=== PATIENT | female | born 1990 | race Caucasian/White ===

== ENCOUNTER 2020-08-11 14:22 | Outpatient (CLI) | payer BC, SELFPAY | END 2020-08-11 14:23 | disposition home or self-care (01) | PROVIDERS: PCP Physician Assistant; Visit Provider Obstetrics & Gynecology | DX: N92.6 Irregular menstruation, unspecified (principal) | CPT/HCPCS: 36415; 84702 ==

== ENCOUNTER 2020-09-12 08:04 | Observation (INO) | payer BC, SELFPAY ==
[2020-09-12] MEDS: ONDANSETRON INJ 4 MG/2 ML VIAL IV PUSH (08:33)
[2020-09-12] MEDS: DEXTROSE 5%/LACTATED RINGERS 1,000 ML 999 ML IV CONT (08:33)
[2020-09-12] MEDS: FAMOTIDINE 20 MG/2 ML VIAL IV PUSH (08:33)
[2020-09-12] MEDS: DEXTROSE 5%/LACTATED RINGERS 1,000 ML 200 ML IV CONT (09:29)
[2020-09-12] MEDS: METOCLOPRAMIDE HCL INJ 10 MG/2 ML VIAL IV PUSH (11:32)
[2020-09-12 11:36] VITALS: BMI 33.3
--- NOTE | 2020-09-12 11:45 | OBADM ---
This patient, Lexie Krueger, admitted to the OB room 117 for observation for hyperemesis. Patient/family oriented to hospital policies and general routines including ID bracelet, bed and alarms, visiting hours, pain management, procedures, bathroom and other care routines, personal items, smoking policy, room service/diet, and visiting hours. Patient/Family are encouraged to report perceived risks to care and to ask questions if they do not understand what they are told or what they should do.
--- NOTE | 2020-09-12 12:00 | PM.OBTRLD ---
OB - Triage/Final Diagnosis Visit Information Reason for evaluation: other (hyperemesis) Comments/Additional reasons for admission: I have assessed the risk for this patient, Lexie Alda Krueger, and determined that she would benefit from observation care.
--- NOTE | 2020-09-12 15:30 | PC.NURSE ---
Pt now awake from taking a nap. States headache is almost gone and she no longer needs the Tylenol. Pt has kept down her saltines and white soda. Nausea has decreased and is only intermittent at present. Pt requests to go home.
== END 2020-09-12 15:47 ==
LOC: ANHOBPP 15:23 → ANHOBOP 09-16 10:41 → ANHLDR 09-16 12:32 → ANHOBOP 09-17 06:12 → ANHLDR 09-17 06:12
PROVIDERS: Admitting Provider Obstetrics & Gynecology; PCP Physician Assistant; Visit Provider Obstetrics & Gynecology
DX: O21.0 Mild hyperemesis gravidarum (principal); Z3A.09 9 weeks gestation of pregnancy
CPT/HCPCS: 96361; 96374; 96375; 99199; G0378; G0379; J2405; J2765; J7121

== ENCOUNTER 2020-09-22 07:36 | Observation (INO) | payer BC, SELFPAY ==
--- NOTE | ~2020-09-22 | US_ITS ---
EXAMINATION: US abdomen limited EXAM DATE: 09/22/2020 13:01 INDICATION: nausea and vomiting - check gallbladder. . TECHNIQUE: Multiple grayscale and Doppler images of the abdomen right upper quadrant were obtained (b y a technologist who performed the scan) and subsequently reviewed. There is no prior study for mariza fitch. FINDINGS: The pancreatic head and body are normal in appearance. The pancreatic tail is not visualized. The l iver has normal echogenicity and contour. There are no focal liver lesions identified. There is no evidence of intrahepatic biliary duct dilation. Portal venous flow was seen in the hepatopedal, nor mal direction and has normal Doppler waveform. No right-sided hydronephrosis. Common bile duct measures 4 mm, which is normal. The gallbladder wall is normal in thickness, with ex pected amount of distention. No sonographic evidence of pericholecystic fluid. There is no cholelit hiases. Technologist performing exam reports patient did not demonstrate sonographic Khan's sign. Please note that this sign is less reliable in patients who have received pain medication. IMPRESSION: 1. Unremarkable abdominal ultrasound exam. Reviewed, dictated and finalized at location A.
--- NOTE | 2020-09-22 07:44 | PM.OBTRLD ---
OB - Triage/Final Diagnosis Visit Information Comments/Additional reasons for admission: I have assessed the risk for this patient, Lexie Krueger, and determined that she would benefit from observation care. Final Diagnosis (1) Hyperemesis affecting , antepartum: Code(s): O21.0 - Mild hyperemesis gravidarum Status: Acute
[2020-09-22 07:46] VITALS: BP 126/74; PULSE 76
[2020-09-22] MEDS: DEXTROSE 5%/LACTATED RINGERS 1,000 ML 999 ML IV CONT (08:12)
[2020-09-22] MEDS: ONDANSETRON INJ 4 MG/2 ML VIAL IV PUSH (08:12)
[2020-09-22] MEDS: FAMOTIDINE 20 MG/2 ML VIAL IV PUSH (08:13)
[2020-09-22 08:23] LABS: Hematocrit 39.7 % (37.0-47.0); Hemoglobin 13.8 g/dL (12.0-15.0); Mean Corpuscular HGB Conc 34.8 g/dl (32-36); Mean Corpuscular Hemoglobin 29.1 pg (26-34); Mean Corpuscular Volume 83.8 fl (80-100); Mean Platelet Volume 10.7 fl (7.4-10.4); Platelet Count Result 284 k/mm3 (150-375); Red Blood Count 4.74 M/mm3 (4.2-5.4); Red Cell Distribution Width 12.7 % (11.5-14.5); White Blood Count 11.4 K/mm3 (4.5-10.0)
[2020-09-22 08:36] LABS: Alanine Aminotransferase 28 U/L (4-35); Albumin Level 3.9 g/dL (3.5-5.1); Alkaline Phosphatase 62 U/L (38-126); Anion Gap 7 mmol/L (8-16); Aspartate Amino Transferase 29 U/L (14-36); Bilirubin,Total 0.4 mg/dL (0.2-1.3); Blood Urea Nitrogen 7 mg/dL (7-17); Calcium 9.2 mg/dL (8.4-10.2); Carbon Dioxide 25 mmol/L (22-30); Chloride 105 mmol/L (98-107); Estimated Glomerular Filt Rate > 60; Glucose 102 mg/dL (65-105); Potassium 3.7 mmol/L (3.4-5.0); Sodium 137 mmol/L (137-145)
[2020-09-22] MEDS: DEXTROSE 5%/LACTATED RINGERS 1,000 ML 200 ML IV CONT (09:00)
[2020-09-22] MEDS: ACETAMINOPHEN 500 MG TABLET 1000 MG PO (11:00)
[2020-09-22] MEDS: METOCLOPRAMIDE HCL INJ 10 MG/2 ML VIAL IV PUSH (11:51)
[2020-09-22 12:27] VITALS: BMI 35.0
--- NOTE | 2020-09-22 15:00 | PC.NURSE ---
patient states that she is feeling much better and ok with discharge.
== END 2020-09-22 15:14 | disposition home or self-care (01) ==
PROVIDERS: Admitting Provider Obstetrics & Gynecology; PCP Physician Assistant; Visit Provider Obstetrics & Gynecology
DX: O21.0 Mild hyperemesis gravidarum (principal); Z3A.00 Weeks of gestation of pregnancy not specified
CPT/HCPCS: 36415; 76705; 80053; 85027; 96361; 96374; 96375; A9270; G0378; G0379; J2405; J2765; J7121

== ENCOUNTER 2021-04-04 09:47 | Outpatient (CLI) | payer BC, SELFPAY ==
[2021-04-04 10:14] LABS: Hematocrit 35.9 % (37.0-47.0); Hemoglobin 11.7 g/dL (12.0-15.0); Mean Corpuscular HGB Conc 32.6 g/dl (32-36); Mean Corpuscular Hemoglobin 27.1 pg (26-34); Mean Corpuscular Volume 83.3 fl (80-100); Mean Platelet Volume 10.4 fl (7.4-10.4); Platelet Count Result 274 k/mm3 (150-375); Red Blood Count 4.31 M/mm3 (4.2-5.4); Red Cell Distribution Width 13.3 % (11.5-14.5); White Blood Count 10.2 K/mm3 (4.5-10.0)
[2021-04-06 06:59] LABS: Rapid Plasma Reagin Non-Reactive (NonReactive)
== END 2021-04-04 09:48 | disposition home or self-care (01) ==
PROVIDERS: PCP Physician Assistant; Visit Provider Obstetrics & Gynecology
DX: Z34.93 Encounter for supervision of normal pregnancy, unspecified, third trimester (principal); Z3A.00 Weeks of gestation of pregnancy not specified
CPT/HCPCS: 36415; 85027; 86592; 86850; 86900; 86901

== ENCOUNTER 2021-04-06 05:27 | Inpatient (IN) | payer BC, SELFPAY ==
[2021-04-06] VITALS (49 sets, daily range): BP systolic 106–138; BP diastolic 56–98; PULSE 51–117; RESP 16–18; TEMP 36–36.9; O2SAT 97–100; BMI 38.0
[2021-04-06] MEDS: LACTATED RINGERS 1,000 ML 999 ML IV CONT (06:35)
--- NOTE | 2021-04-06 06:36 | LDADM ---
This patient, Lexie Krueger, was admitted to Labor/Delivery/Recovery 120 on 04/06/21 at 05:27. Plans for labor, pain management and were discussed with patient. Patient/family oriented to hospital policies and general routines including ID bracelet, bed and alarms, visiting hours, pain management, procedures, bathroom and other care routines, personal items, smoking policy, room service/diet and guest tray routines, infant security routines, call light and visiting hours. Patient/Family are encouraged to report perceived risks to care and to ask questions if they do not understand what they are told or what they should do. See OBIX for further documentation.
--- NOTE | 2021-04-06 06:56 | P.PNAN_ITS ---
Anes - Initial Pre Proc Eval Procedure: Operation Date: 04/06/21 07:30 Proposed Procedures p Repeat Section With Bilateral Tubal Sterilization With Cautery - El Burkett MD Date/Time: 04/06/21 06:56 Surgeon: El Burkett MD Pre Op Diagnosis: Patient Data Age: 31 Gender: F Height: 1.65 m Weight: 103.5 kg Allergies Allergy/AdvReac Type Severity Reaction Status Date / Time Penicillins Allergy Unknown Rash Verified 04/06/21 06:33 Home Medications Medication Instructions Recorded Confirmed Type Gummies 2 tablet PO DAILY 09/12/20 04/06/21 History metoclopramide HCl 10 mg PO Q6H PRN 09/12/20 04/06/21 History cetirizine [Zyrtec] 10 mg PO DAILY 03/13/21 04/06/21 History levothyroxine 75 mcg PO DAILY 03/13/21 04/06/21 History Patient hx anesthesia problems: none Family hx anesthesia problems: none Results Review: All pre-operative results and documents have been reviewed as part of the pre-operative evaluation. [facility] Past Medical History Medical History (Updated 04/06/21 @ 06:56 by Nehemias Lopez MD) Hypothyroidism Surgical History Surgical History (Updated 04/06/21 @ 06:56 by Nehemias Lopez MD) History of section Family History Family History (Updated 03/13/21 @ 12:26 by Omar Gunderson RN) Other No pertinent family history Social History Social History Smoking status: Never smoker Substance use: never Spiritual care concerns: No Anes - Eval Final PreProcedure Day of Procedure 04/06/21 06:56 Patient weight: obese Heart: regular rate and rhythm Lungs: clear to auscultation Airway: Mallampati scale class II Neurological: alert and oriented Last oral intake: >/= 8 hours ASA classification: II Emergent: no Anesthesia type and monitoring: regional spinal and standard monitoring Results Review: All pre-operative results and documents have been reviewed as part of the pre-operative evaluation. Informed Consent: The patient's anesthetic plan and its attendant risks and benefits were discussed with the patient/family/POA. Questions were solicited and answers provided to the satisfaction of the patient/family/POA.
--- NOTE | 2021-04-06 07:17 | WPDOBADMIT ---
Obstetrics - Admit Note Admission Note: record reviewed. No pertinent additions to the history and/or any subsequent changes in the physical findings that are not consistent with the expected course of the were found. Additions to the history and/or subsequent changes in the physical findings follow. None.
--- NOTE | 2021-04-06 07:17 | PM.IMHP ---
H&P: HPI History of Present Illness Date/Time: 04/06/21 07:17 31-year-old 2 para 1001 female at 39 weeks presents for repeat delivery. records are on the chart and without significant abnormality. Also desires permanent sterilization so we will be proceeding with bilateral salpingectomy as well. We have discussed the permanence failure rate increased risk of ectopic and regret she states good understanding and desires to proceed. Chief Complaint: Review of Systems Review of Systems: All systems reviewed & are unremarkable except as noted in HPI and below PMFSH Past Medical History Medical History Hypothyroidism Surgical History Surgical History History of section Family History Family History Other No pertinent family history Social History Social History Smoking status: Never smoker Substance use: never Spiritual care concerns: No Meds Home Medications and Allergies Home Medications Medication Instructions Recorded Confirmed Type Gummies 2 tablet PO DAILY 09/12/20 04/06/21 History metoclopramide HCl 10 mg PO Q6H PRN 09/12/20 04/06/21 History cetirizine [Zyrtec] 10 mg PO DAILY 03/13/21 04/06/21 History levothyroxine 75 mcg PO DAILY 03/13/21 04/06/21 History Allergies Allergy/AdvReac Type Severity Reaction Status Date / Time Penicillins Allergy Unknown Rash Verified 04/06/21 06:33 Exam Const: General: cooperative and healthy appearing Resp: Effort & Inspection: normal respiratory effort Auscultation: clear to auscultation bilaterally Cardio: Rate: regular rate Rhythm: regular rhythm GI: Auscultation: normal bowel sounds : Bimanual exam- vagina & uterus: other ( Uterus 40cm with heart tones 140) Assessment and Plan Assessment and plan (1) 39 weeks gestation of : Code(s): Z3A.39 - 39 weeks gestation of Status: Acute (2) Encounter for female sterilization procedure: Code(s): Z30.2 - Encounter for sterilization Status: Acute Additional Plan 1. Proceed with low transverse section with bilateral tubal salpingectomy.
--- NOTE | 2021-04-06 07:20 | WPDHPUPDATE1 ---
History and Physical Update Update Date/Time: 04/06/21 07:20 History and Physical has been reviewed, including an updated exam of the patient. There are NO changes in the patient's condition. Risks, benefits, and alternatives have been discussed and questions answered. Patient agrees to proceed with procedure.
[2021-04-06] MEDS: ceFAZolin 2 GM/D5W 50 ML 2 GM/50 ML BAG IVPB (07:24)
--- NOTE | 2021-04-06 08:14 | P.PCNOB_ITS ---
OB - Delivery Note Procedure Procedure: Procedures Operation Date: 04/06/21 07:30 <No data on this case meets the specified criteria> events: Previous Route of delivery: (With bilateral salpingectomy/tubal ligation) Specimen: Yes Quantitative Blood Loss (ml): 175 Anesthesia type: Epidural Disposition: floor Complications: None Narrative: Patient was prepped in usual manner this procedure. Pfannenstiel incision was made and carried down to the fascia which was then extended bilaterally the length of the skin incision. Superiorly and inferiorly dissected away from the rectus muscles which were then bluntly dissected the peritoneum was readily entered. Bladder flap was developed uterus scored and low transverse incision was made with clear fluid noted. Vertex was delivered with the rest of baby following cord being clamped and cut and the placenta manually removed. Uterus was exteriorized cleared of membranes and clots and closed using 0 Monocryl running interlocking manner. Bilaterally the tubes were then grasped and mesial salpinx was cauterized and cut and the tubes removed without difficulty. Uterine incision was again inspected noted hemostatic uterus was turned to the abdomen and both tubal stumps were also hemostatic and intact. Fascia was approximated using 0 Vicryl from left angle midline right angle to the midline and subcutaneous tissue was approximated 0 plain suture and skin john to approximate the skin edges. This point the procedure was considered terminated with immediate postoperative condition of mother and baby both excellent. [place] Baby Weeks of gestation at delivery: 39 Infant gender: Female Weight (pounds): 8 Weight (ounces): 1 score one minute: 8 score five minutes: 9
[2021-04-06] MEDS: OXYTOCIN 30 UNITS/NS 500 ML 30 UNITS/500 ML BAG 125 UNITS IV CONT (08:40)
--- NOTE | 2021-04-06 10:16 | PC.NURSE ---
Report given to Savanna Barger RN
--- NOTE | 2021-04-06 10:35 | PC.NURSE ---
Patient transferred to post room #292 per stretcher from labor and delivery. Support person present. Oriented to unit, room, information board, rooming in, admission packet and security measures. Patient verbalizes understanding.
[2021-04-06] MEDS: KETOROLAC 30 MG/ML VIAL (*BKC) IV PUSH (10:58)
[2021-04-06] MEDS: DEXTROSE 5%/0.45% SOD CHL 1,000 ML 125 ML IV CONT (12:18)
--- NOTE | 2021-04-06 14:00 | PC.NURSE ---
Consult with pt., mother wishes to pump and bottle feed. Breast pump provided due to mother's wishes. Instructions given on breast pump care and usage, pumping schedule, nipple care, and collection and storage of breast milk. Encouraged [id number], breast massage and manual expression to stimulate supply. Assessed patient for correct flange size, placement and draw. Patient verbalizes and demonstrates understanding of instructions. Discussed colostrum vs milk supply and mother may not see more than a few drops the first few days, milk should transition in by day 3 and she may see more volume pumped per session.
[2021-04-06] MEDS: ONDANSETRON INJ 4 MG/2 ML VIAL IV PUSH (14:33)
[2021-04-06] MEDS: HYDROcodone/acetaminophen (*CRX) 10-325 MG TABLET 1 TAB PO ×2 (16:15→20:19)
[2021-04-06] MEDS: SIMETHICONE 80 MG TAB.CHEW PO (16:16)
[2021-04-06] MEDS: DOCUSATE SODIUM 100 MG CAPSULE PO (20:19)
[2021-04-06] MEDS: IBUPROFEN 600 MG TABLET PO (20:20)
[2021-04-06] MEDS: LORATADINE 10 MG TABLET PO (20:24)
[2021-04-07 04:00] VITALS: BP 129/78; PULSE 72; RESP 18; TEMP 36.8
[2021-04-07] MEDS: HYDROcodone/acetaminophen (*CRX) 10-325 MG TABLET 1 TAB PO ×5 (04:42→20:33)
[2021-04-07] MEDS: LEVOTHYROXINE SODIUM 75 MCG TABLET PO (04:42)
[2021-04-07] MEDS: IBUPROFEN 600 MG TABLET PO ×3 (04:43→17:19)
[2021-04-07] MEDS: SIMETHICONE 80 MG TAB.CHEW PO ×4 (05:07→20:48)
[2021-04-07 05:58] LABS: Basophils Absolute Auto 0.1 K/mm3 (0.0-0.1); Basophils Percent Auto 0.4 % (0.2-1.2); Hematocrit 31.2 % (37.0-47.0); Hemoglobin 9.9 g/dL (12.0-15.0); Immature Granulocyte Absolute 0.07 K/mm3 (0.00-0.031); Immature Granulocyte Percent A 0.6 % (0-0.5); Lymphocytes Absolute Auto 2.99 K/mm3 (0.9-3.2); Lymphocytes Percent Auto 25.7 % (18.3-44.2); Mean Corpuscular HGB Conc 31.7 g/dl (32-36); Mean Corpuscular Hemoglobin 27.4 pg (26-34); Mean Corpuscular Volume 86.4 fl (80-100); Mean Platelet Volume 10.7 fl (7.4-10.4); Monocytes Absolute Auto 0.8 K/mm3 (0.1-0.6); Monocytes Percent Auto 7.2 % (2.6-8.5); Neutrophils Absolute Auto 7.7 K/mm3 (1.3-6.7); Neutrophils Percent Auto 66.1 % (45.5-73.1); Platelet Count Result 228 k/mm3 (150-375); Red Blood Count 3.61 M/mm3 (4.2-5.4); Red Cell Distribution Width 13.7 % (11.5-14.5); White Blood Count 11.6 K/mm3 (4.5-10.0)
--- NOTE | 2021-04-07 07:39 | PM.OBDSVD ---
DS: Admitting Diagnosis Discharge Date 04/08/2021 Admitting Diagnosis DS: Discharge Diagnosis Discharge Diagnosis (1) 39 weeks gestation of : Code(s): Z3A.39 - 39 weeks gestation of Status: Acute OB - DS: Summary OB Procedures : None OB Procedures Intrapartum: and Tubal ligation OB Procedures: : None Peripartum Data Procedures: Procedures Operation Date: 04/06/21 07:30 Actual Procedure Side Surgeon p Repeat Section With Bilateral Tubal Sterilization With Cautery El Burkett MD Time Spent with Patient Time attestation: Total time spent providing and/or coordinating discharge services: DS: Data Data Completed and Pending Pending studies at discharge: Pending at discharge 04/06/21 08:00 Surgical [PTH] Routine Labs on day of discharge: Labs from last 24 hours 04/07/21 04:41 WBC 11.6 H RBC 3.61 L Hgb 9.9 L Hct 31.2 L MCV 86.4 MCH 27.4 MCHC 31.7 L RDW 13.7 Plt Count 228 MPV 10.7 H Immature Gran % (Auto) 0.6 H Neut % (Auto) 66.1 Lymph % (Auto) 25.7 [place] % (Auto) 7.2 Eos % (Auto) 0.0 Baso % (Auto) 0.4 Lymph # (Auto) 2.99 [place] # (Auto) 0.8 H Eos # (Auto) 0.0 Baso # (Auto) 0.1 Abs Immat Gran (auto) 0.07 H Absolute Neuts (auto) 7.7 H Absolute Nucleated RBC 0.0 Nucleated RBC % 0.0 Discharge Plan Discharge Attending physician on discharge: El Burkett Discharging Clinician: El Burkett Anticipated Discharge Date/Time: 04/08/21 07:40 Patient Disposition: Home, Self-Care Activity: as tolerated Diet: as tolerated Wound Care Instructions: incision open to air Discharge Instructions: john out tuesday/hospital visit or office Patient Instructions: Antibiotic Form Stand Alone Forms: General Discharge Information Follow-up/Referrals: El Burkett MD [Physician] - 3 Weeks Discharge Medications: New hydrocodone-acetaminophen 5-325 mg Tablet 1 tablet PO Q3H PRN (Reason: Moderate Pain (4-6)) Qty: 30 RF: 0 ibuprofen 600 mg Tablet 600 mg PO Q6H PRN (Reason: Cramping) Qty: 30 RF: 0 Continued metoclopramide HCl 10 mg tablet 10 mg PO Q6H PRN (Reason: Nausea) RF: 0 Gummies 400 mcg-35 mg- 25 mg-5 mg Tablet,Chewable 2 tablet PO DAILY RF: 0 cetirizine [Zyrtec] 10 mg Tablet 10 mg PO DAILY RF: 0 levothyroxine 75 mcg Tablet 75 mcg PO DAILY RF: 0 Date of admission: 04/06/21 05:27 Primary Care Provider: Austen,Zee Admitting Provider: El Burkett Attending physician on admission: El Burkett Condition: Stable
[2021-04-07 08:20] VITALS: BP 132/65; PULSE 77; RESP 16; TEMP 36.6; O2SAT 99
--- NOTE | 2021-04-07 08:45 | PC.NURSE ---
Consult with pt., mother continues to pump without difficulties or discomfort. Requested mother call out for LC with questions or concerns.
[2021-04-07] MEDS: MULTIVIT/MIN/PREN/FOL AC/IRON TABLET 1 TAB PO (08:59)
[2021-04-07] MEDS: DOCUSATE SODIUM 100 MG CAPSULE PO ×2 (09:00→17:04)
[2021-04-07] MEDS: POLYSACCHARIDE IRON COMPLEX 150 MG CAPSULE PO ×2 (11:44→17:04)
[2021-04-07] MEDS: LORATADINE 10 MG TABLET PO (11:45)
--- NOTE | 2021-04-07 15:18 | WPDANLDPN2 ---
Anes-Prog Note L&D Date/Time: 04/07/21 15:18 Comfortable throughout: section Neuraxial method: spinal Epidural/Spinal procedure site: clean & non-tender Neuro status: Neuro function grossly intact. Cardiovascular status: normal Respiratory status: normal Airway patency: baseline Mental status: baseline Post-Op hydration status: normal Vital Signs: Last Vital Signs Temp 98 F 04/07/21 08:20 Pulse 77 04/07/21 08:20 Resp 16 04/07/21 08:20 BP 132/65 04/07/21 08:20 Pulse Ox 99 04/07/21 08:20 Pain score (VAS): 0 I/O: Intake & Output 04/06/21 04/07/21 04/07/21 23:59 07:59 15:59 Intake Total 1240 1600 Output Total 250 1850 Balance 990 -250 Post-procedural complaints: pruritis severe, treatment refractory Patient feedback: Patient satisfied with anesthetic care.
--- NOTE | 2021-04-07 15:19 | WPDANLDNPN2 ---
Anes-Prog Note L&D-Neuraxial Date/Time: 04/07/21 15:19 Neuraxial medications: intrathecal PF morphine Opiod-related complaints: pruritis severe, treatment refractory Patient feedback: Patient satisfied with post-operative pain management.
[2021-04-07 20:15] VITALS: BP 114/72; PULSE 79; RESP 16; TEMP 36.8; O2SAT 98
[2021-04-08] MEDS: HYDROcodone/acetaminophen (*CRX) 10-325 MG TABLET 1 TAB PO (00:26)
[2021-04-08] MEDS: IBUPROFEN 600 MG TABLET PO ×2 (00:27→06:46)
[2021-04-08] MEDS: SIMETHICONE 80 MG TAB.CHEW PO (00:28)
[2021-04-08] MEDS: LEVOTHYROXINE SODIUM 75 MCG TABLET PO (06:46)
[2021-04-08] MEDS: HYDROcodone/acetaminophen (*CRX) 5-325 MG TABLET 1 TAB PO ×2 (06:50→09:40)
[2021-04-08 08:50] VITALS: BP 123/74; PULSE 75; RESP 18; TEMP 36.2; O2SAT 100
[2021-04-08] MEDS: MULTIVIT/MIN/PREN/FOL AC/IRON TABLET 1 TAB PO (09:23)
[2021-04-08] MEDS: LORATADINE 10 MG TABLET PO (09:24)
[2021-04-08] MEDS: DOCUSATE SODIUM 100 MG CAPSULE PO (09:24)
--- NOTE | 2021-04-08 09:30 | PC.NURSE ---
Consult with pt., mother continues to pump without difficulties or discomfort. Mother is feeding as required and waking infant to feed if needed. Mother states she feels confident to continue current plan of pumping, formula feeding transitioning to EBM at home. Reviewed transition to breast milk, signs of adequate intake, and engorgement/relief. Instructed to call ICP if intake/output less than required. Reviewed regular medications mother is taking. Information provided per Clara. Reviewed community resources on the [email or web address] website and in the Mom/Baby guide. Information on outpatient services provided. Mother has no further questions at this time.
--- NOTE | 2021-04-08 14:09 | PC.NURSE ---
1333 Patient viewed the discharge video Mother & Baby Care, The First Two Weeks . Patient was given the opportunity and encouraged to ask questions. Patient verbalized understanding of information shared and has been given the mother/baby guide for home reference.
--- NOTE | 2021-04-09 21:40 | PM.OBDSVD ---
DS: Admitting Diagnosis Discharge Date 04/08/21 Admitting Diagnosis OB - DS: Summary OB Procedures : None OB Procedures Intrapartum: and Tubal ligation OB Procedures: : None Peripartum Data Procedures: Procedures Operation Date: 04/06/21 07:30 Actual Procedure Side Surgeon p Repeat Section With Bilateral Tubal Sterilization With Cautery El Burkett MD Time Spent with Patient Time attestation: Total time spent providing and/or coordinating discharge services: DS: Data Data Completed and Pending Completed studies during hospitalization: Pending at discharge 04/06/21 08:00 Surgical [PTH] Routine Pending studies at discharge: Pending at discharge 04/07/21 08:31 Surgical [PTH] Routine Discharge Plan Discharge Attending physician on discharge: El Burkett Discharging Clinician: El Burkett Anticipated Discharge Date/Time: 04/08/21 07:40 Patient Disposition: Home, Self-Care Activity: as tolerated Diet: as tolerated Wound Care Instructions: incision open to air Discharge Instructions: Education: Mom and Baby Guide Given to: Mother Follow-Up: Call your delivering provider's office for an appointment to be seen in: 3 Weeks Mom and baby should come to the [facility] for the follow-up appointment. Appointment Date/Time: Saturday, April 10, 2021 at 11:00 am What to expect at your follow-up visit: Removal of [place] Call [phone] if you are unable to keep your appointment time. BREAST CARE: * Wear a snug supportive bra. * For engorgement discomfort: Breast Feeding: * Apply warm moist washcloths * Express milk as needed to relieve engorgement * Wear loose clothing Bottle Feeding: * May apply ice packs * For sore nipples: * Identify correct latch-on * Apply warm moist washcloths before and after nursing * Air dry nipples after nursing * May apply Lansinoh cream to nipples ABDOMINAL INCISION: (if applicable) * Allow incision to air dry * Do NOT use lotions for powders on your incision * When showering, allow soap and water to run over the incision, but do not wash incision PERINEAL CARE: * Until bleeding stops, use your anat bottle after urinating * Change your pad frequently throughout the day * You may take sitz baths several times a day (fill your bathtub with warm water and soak for 20 minutes.) Do NOT bathe in the water * No tub baths until seen by your physician - You may shower ACTIVITY: * Rest as much as possible. * Do not exercise or lift anything heavier than your baby (such as laundry or other children.) * Avoid stairs or driving as much as possible. * Do not put anything into the vagina. No douching, tampons, or sexual activity until seen by physician. NOTIFY PHYSICIAN IF YOU HAVE ANY QUESTIONS OR IF ANY OF THE FOLLOWING SYMPTOMS OCCUR: * If your episiotomy or incision becomes red, swollen, or more painful than what you have experienced in the hospital. * If your vaginal bleeding becomes foul smelling. * If your vaginal bleeding becomes more heavy than a period or if your bleeding changes from pink to bright red. However, you may pass an occasional walnut-sized clot once or twice for the first week . * If you experience a sharp, shooting pain in you calves. * If you discover a hard, reddened area on your breast or if you experience flu-like symptoms. DIET: * Eat regular, well-balanced meals. * Drink plenty of fluids daily. If , drink to thirst. Per Gloria Urias out Tuesday/hospital visit or office Follow-up/Referrals: El Burkett MD [Physician] - 3 Weeks Discharge Medications: New hydrocodone-acetaminophen 5-325 mg Tablet 1 tablet PO Q3H PRN (Reason: Moderate Pain (4-6)) Qty: 30 RF: 0 ibuprofen 600 mg T
[2021-04-10 11:07] VITALS: BP 133/77; PULSE 78; RESP 20; TEMP 36.9; O2SAT 99
--- NOTE | 2021-04-11 07:24 | PM.OBDSVD ---
DS: Admitting Diagnosis Discharge Date 04/08/21 Admitting Diagnosis OB - DS: Summary OB Procedures : None OB Procedures Intrapartum: and Tubal ligation OB Procedures: : None Peripartum Data Procedures: Procedures Operation Date: 04/06/21 07:30 Actual Procedure Side Surgeon p Repeat Section With Bilateral Tubal Sterilization With Cautery El Burkett MD Time Spent with Patient Time attestation: Total time spent providing and/or coordinating discharge services: DS: Data Data Completed and Pending Completed studies during hospitalization: Pending at discharge 04/06/21 08:00 Surgical [PTH] Routine 04/07/21 08:31 Surgical [PTH] Routine Discharge Plan Discharge Attending physician on discharge: El Burkett Consulting providers: Nehemias Lopez Discharging Clinician: El Burkett Anticipated Discharge Date/Time: 04/08/21 07:40 Patient Disposition: Home, Self-Care Activity: as tolerated Diet: as tolerated Wound Care Instructions: incision open to air Discharge Instructions: Education: Mom and Baby Guide Given to: Mother Follow-Up: Call your delivering provider's office for an appointment to be seen in: 3 Weeks Mom and baby should come to the [facility] for the follow-up appointment. Appointment Date/Time: Saturday, April 10, 2021 at 11:00 am What to expect at your follow-up visit: Removal of Gloria Call [phone] if you are unable to keep your appointment time. BREAST CARE: * Wear a snug supportive bra. * For engorgement discomfort: Breast Feeding: * Apply warm moist washcloths * Express milk as needed to relieve engorgement * Wear loose clothing Bottle Feeding: * May apply ice packs * For sore nipples: * Identify correct latch-on * Apply warm moist washcloths before and after nursing * Air dry nipples after nursing * May apply Lansinoh cream to nipples ABDOMINAL INCISION: (if applicable) * Allow incision to air dry * Do NOT use lotions for powders on your incision * When showering, allow soap and water to run over the incision, but do not wash incision PERINEAL CARE: * Until bleeding stops, use your anat bottle after urinating * Change your pad frequently throughout the day * You may take sitz baths several times a day (fill your bathtub with warm water and soak for 20 minutes.) Do NOT bathe in the water * No tub baths until seen by your physician - You may shower ACTIVITY: * Rest as much as possible. * Do not exercise or lift anything heavier than your baby (such as laundry or other children.) * Avoid stairs or driving as much as possible. * Do not put anything into the vagina. No douching, tampons, or sexual activity until seen by physician. NOTIFY PHYSICIAN IF YOU HAVE ANY QUESTIONS OR IF ANY OF THE FOLLOWING SYMPTOMS OCCUR: * If your episiotomy or incision becomes red, swollen, or more painful than what you have experienced in the hospital. * If your vaginal bleeding becomes foul smelling. * If your vaginal bleeding becomes more heavy than a period or if your bleeding changes from pink to bright red. However, you may pass an occasional walnut-sized clot once or twice for the first week . * If you experience a sharp, shooting pain in you calves. * If you discover a hard, reddened area on your breast or if you experience flu-like symptoms. DIET: * Eat regular, well-balanced meals. * Drink plenty of fluids daily. If , drink to thirst. Per Gloria Urias out Tuesday/hospital visit or office Follow-up/Referrals: El Burkett MD [Physician] - 3 Weeks Discharge Medications: New hydrocodone-acetaminophen 5-325 mg Tablet 1 tablet PO Q3H PRN (Reason: Moderate Pain (4-6)) Qty: 30 RF: 0 ibuprofen 600 mg Tablet 600 mg P
--- NOTE | 2021-04-12 12:17 | P.DS_ITS ---
DS: Admitting Diagnosis Discharge Date 04/08/21 Admitting Diagnosis OB - DS: Summary OB Procedures : None OB Procedures Intrapartum: and Tubal ligation OB Procedures: : None Peripartum Data Procedures: Procedures Operation Date: 04/06/21 07:30 Actual Procedure Side Surgeon p Repeat Section With Bilateral Tubal Sterilization With Cautery El Burkett MD Time Spent with Patient Time attestation: Total time spent providing and/or coordinating discharge services: DS: Data Data Completed and Pending Completed studies during hospitalization: Pending at discharge 04/06/21 08:00 Surgical [PTH] Routine 04/07/21 08:31 Surgical [PTH] Routine Discharge Plan Discharge Attending physician on discharge: El Burkett Consulting providers: Nehemias Lopez Discharging Clinician: El Burkett Anticipated Discharge Date/Time: 04/08/21 07:40 Patient Disposition: Home, Self-Care Activity: as tolerated Diet: as tolerated Wound Care Instructions: incision open to air Discharge Instructions: Education: Mom and Baby Guide Given to: Mother Follow-Up: Call your delivering provider's office for an appointment to be seen in: 3 Weeks Mom and baby should come to the [facility] for the follow-up appointment. Appointment Date/Time: Saturday, April 10, 2021 at 11:00 am What to expect at your follow-up visit: Removal of Gloria Call [phone] if you are unable to keep your appointment time. BREAST CARE: * Wear a snug supportive bra. * For engorgement discomfort: Breast Feeding: * Apply warm moist washcloths * Express milk as needed to relieve engorgement * Wear loose clothing Bottle Feeding: * May apply ice packs * For sore nipples: * Identify correct latch-on * Apply warm moist washcloths before and after nursing * Air dry nipples after nursing * May apply Lansinoh cream to nipples ABDOMINAL INCISION: (if applicable) * Allow incision to air dry * Do NOT use lotions for powders on your incision * When showering, allow soap and water to run over the incision, but do not wash incision PERINEAL CARE: * Until bleeding stops, use your anat bottle after urinating * Change your pad frequently throughout the day * You may take sitz baths several times a day (fill your bathtub with warm water and soak for 20 minutes.) Do NOT bathe in the water * No tub baths until seen by your physician - You may shower ACTIVITY: * Rest as much as possible. * Do not exercise or lift anything heavier than your baby (such as laundry or other children.) * Avoid stairs or driving as much as possible. * Do not put anything into the vagina. No douching, tampons, or sexual activity until seen by physician. NOTIFY PHYSICIAN IF YOU HAVE ANY QUESTIONS OR IF ANY OF THE FOLLOWING SYMPTOMS OCCUR: * If your episiotomy or incision becomes red, swollen, or more painful than what you have experienced in the hospital. * If your vaginal bleeding becomes foul smelling. * If your vaginal bleeding becomes more heavy than a period or if your bleeding changes from pink to bright red. However, you may pass an occasional walnut- sized clot once or twice for the first week post
== END 2021-04-08 12:06 | disposition home or self-care (01) | DRG 785 ==
LOC: ANHLDR 05:31 → ANHOB2 10:57
PROVIDERS: Admitting Provider Obstetrics & Gynecology; PCP Physician Assistant; Visit Provider Obstetrics & Gynecology
PROC: 10D00Z1 Extraction of Products of Conception, Low, Open Approach (ICD-10-PCS; CPT 59514; principal; 2021-04-06 07:30)
DX: O34.211 Maternal care for low transverse scar from previous cesarean delivery (principal); Z30.2 Encounter for sterilization; O99.284 Endocrine, nutritional and metabolic diseases complicating childbirth; E03.9 Hypothyroidism, unspecified; O69.81X0 Labor and delivery complicated by cord around neck, without compression, not applicable or unspecified; Z3A.39 39 weeks gestation of pregnancy; Z37.0 Single live birth
CPT/HCPCS: 36415; 85025; 88302; 88307; A9270; J0690; J1885; J2274; J2405; J2590; J7120

== ENCOUNTER 2021-06-10 09:50 | Outpatient (CLI) | payer BC, SELFPAY ==
[2021-06-10 10:37] LABS: Basophils Absolute Auto 0.1 K/mm3 (0.0-0.1); Basophils Percent Auto 0.6 % (0.2-1.2); Hematocrit 40.5 % (37.0-47.0); Immature Granulocyte Absolute 0.05 K/mm3 (0.00-0.031); Immature Granulocyte Percent A 0.5 % (0-0.5); Lymphocytes Absolute Auto 2.99 K/mm3 (0.9-3.2); Mean Corpuscular HGB Conc 32.1 g/dl (32-36); Mean Corpuscular Hemoglobin 26.4 pg (26-34); Mean Corpuscular Volume 82.3 fl (80-100); Mean Platelet Volume 9.9 fl (7.4-10.4); Monocytes Absolute Auto 0.6 K/mm3 (0.1-0.6); Monocytes Percent Auto 5.8 % (2.6-8.5); Neutrophils Percent Auto 62.1 % (45.5-73.1); Platelet Count Result 362 k/mm3 (150-375); Red Blood Count 4.92 M/mm3 (4.2-5.4); Red Cell Distribution Width 14.2 % (11.5-14.5); White Blood Count 9.7 K/mm3 (4.5-10.0)
[2021-06-10 10:57] LABS: Alanine Aminotransferase 43 U/L (4-35); Albumin Level 4.1 g/dL (3.5-5.1); Alkaline Phosphatase 78 U/L (38-126); Anion Gap 7 mmol/L (8-16); Aspartate Amino Transferase 34 U/L (14-36); Bilirubin,Total 0.3 mg/dL (0.2-1.3); Blood Urea Nitrogen 11 mg/dL (7-17); Calcium 9.5 mg/dL (8.4-10.2); Carbon Dioxide 27 mmol/L (22-30); Chloride 104 mmol/L (98-107); Estimated Glomerular Filt Rate > 60; Glucose 117 mg/dL (65-110); Potassium 4.2 mmol/L (3.4-5.0); Sodium 138 mmol/L (137-145)
[2021-06-10 11:22] LABS: Free T4 Free Thyroxine 0.87 ng/mL (0.78-2.19)
== END 2021-06-10 09:51 | disposition home or self-care (01) ==
PROVIDERS: PCP Physician Assistant; Visit Provider Physician Assistant
DX: E03.9 Hypothyroidism, unspecified (principal); Z51.81 Encounter for therapeutic drug level monitoring; Z79.899 Other long term (current) drug therapy
CPT/HCPCS: 36415; 80053; 84439; 84443; 85025

== ENCOUNTER 2022-03-19 13:48 | Outpatient (CLI) | payer OTHER, SELFPAY ==
[2022-03-19 14:32] LABS: Basophils Absolute Auto 0.1 K/mm3 (0.0-0.1); Basophils Percent Auto 0.7 % (0.2-1.2); Hematocrit 42.9 % (37.0-47.0); Hemoglobin 14.1 g/dL (12.0-15.0); Immature Granulocyte Absolute 0.03 K/mm3 (0.00-0.031); Immature Granulocyte Percent A 0.4 % (0-0.5); Lymphocytes Absolute Auto 3.32 K/mm3 (0.9-3.2); Lymphocytes Percent Auto 39.4 % (18.3-44.2); Mean Corpuscular HGB Conc 32.9 g/dl (32-36); Mean Corpuscular Hemoglobin 27.2 pg (26-34); Mean Corpuscular Volume 82.7 fl (80-100); Monocytes Absolute Auto 0.5 K/mm3 (0.1-0.6); Monocytes Percent Auto 6.4 % (2.6-8.5); Neutrophils Absolute Auto 4.5 K/mm3 (1.3-6.7); Neutrophils Percent Auto 53.1 % (45.5-73.1); Platelet Count Result 354 k/mm3 (150-375); Red Blood Count 5.19 M/mm3 (4.2-5.4); Red Cell Distribution Width 12.9 % (11.5-14.5); White Blood Count 8.4 K/mm3 (4.5-10.0)
[2022-03-19 14:43] LABS: Alanine Aminotransferase 26 U/L (6-35); Albumin Level 4.5 g/dL (3.5-5.1); Alkaline Phosphatase 84 U/L (38-126); Anion Gap 12 mmol/L (8-16); Aspartate Amino Transferase 30 U/L (14-36); Bilirubin,Total 0.3 mg/dL (0.2-1.3); Blood Urea Nitrogen 12 mg/dL (7-17); Calcium 9.1 mg/dL (8.4-10.2); Carbon Dioxide 24 mmol/L (22-30); Chloride 101 mmol/L (98-107); Estimated Glomerular Filt Rate > 60; Glucose 96 mg/dL (65-110); Sodium 137 mmol/L (137-145)
[2022-03-19 16:31] LABS: Free T4 Free Thyroxine 0.82 ng/mL (0.78-2.19)
[2022-03-19 16:49] LABS: Vitamin D 25 Hydroxy 33.7 ng/mL
[2022-03-22 14:42] LABS: Triiodothyronine T3 Free 2.9 pg/mL (2.3-4.2)
[2022-03-24 13:05] LABS: Sex Hormone Binding Globulin 38 nmol/L (17-124)
[2022-03-25 10:20] LABS: Testosterone Free 3.5 pg/mL (0.2-5.0)
[2022-03-26 01:07] LABS: Estradiol, Ultrasensitive 96 pg/mL
[2022-03-27 08:24] LABS: FSH 4.8 mIU/mL (***)
[2022-03-28 02:32] LABS: Thyroid Peroxidase Antibodies 1 IU/mL (<9)
== END 2022-03-19 13:49 | disposition home or self-care (01) ==
PROVIDERS: PCP Physician Assistant; Visit Provider Obstetrics & Gynecology
DX: E03.9 Hypothyroidism, unspecified (principal); G47.00 Insomnia, unspecified; R63.5 Abnormal weight gain; R53.83 Other fatigue
CPT/HCPCS: 36415; 80053; 82306; 82607; 82670; 83001; 84270; 84402; 84439; 84443; 84481; 85025; 86376

== ENCOUNTER 2022-05-07 12:53 | Outpatient (CLI) | payer OTHER, SELFPAY ==
[2022-05-12 11:47] LABS: Testosterone Total 184 ng/dL (2-45)
[2022-05-12 20:54] LABS: FSH 7.5 mIU/mL (***)
[2022-05-15 21:57] LABS: Estradiol, Ultrasensitive 56 pg/mL
== END 2022-05-07 12:54 | disposition home or self-care (01) ==
PROVIDERS: PCP Physician Assistant; Visit Provider Obstetrics & Gynecology
DX: R53.83 Other fatigue (principal); R63.5 Abnormal weight gain; G47.00 Insomnia, unspecified
CPT/HCPCS: 36415; 82670; 83001; 84403

== ENCOUNTER 2022-08-06 07:31 | Outpatient (CLI) | payer OTHER, SELFPAY ==
[2022-08-06 08:17] LABS: Basophils Absolute Auto 0.1 K/mm3 (0.0-0.1); Basophils Percent Auto 0.7 % (0.2-1.2); Hematocrit 43.2 % (37.0-47.0); Hemoglobin 14.3 g/dL (12.0-15.0); Immature Granulocyte Absolute 0.05 K/mm3 (0.00-0.031); Immature Granulocyte Percent A 0.5 % (0-0.5); Lymphocytes Absolute Auto 2.95 K/mm3 (0.9-3.2); Lymphocytes Percent Auto 30.1 % (18.3-44.2); Mean Corpuscular HGB Conc 33.1 g/dl (32-36); Mean Corpuscular Hemoglobin 27.5 pg (26-34); Mean Corpuscular Volume 83.1 fl (80-100); Monocytes Absolute Auto 0.5 K/mm3 (0.1-0.6); Monocytes Percent Auto 5.1 % (2.6-8.5); Neutrophils Absolute Auto 6.2 K/mm3 (1.3-6.7); Neutrophils Percent Auto 63.6 % (45.5-73.1); Platelet Count Result 349 k/mm3 (150-375); Red Cell Distribution Width 13.7 % (11.5-14.5); White Blood Count 9.8 K/mm3 (4.5-10.0)
[2022-08-06 08:26] LABS: Appearance Urine Clear (Clear); Bilirubin Urine Negative (Negative); Blood Urine Negative (Negative); Color Urine Yellow (Yellow); Glucose Urine UA Negative (Negative); Ketones Urine Negative (Negative); Leukocyte Esterase Ur Negative LEU/UL (Negative); Nitrate Urine Negative (Negative); Protein Urine Trace mg/dL (Negative); Urobilinogen Urine 0.2 mg/dL (<2.0); pH Urine 6.5 (5.0-9.0)
[2022-08-06 08:37] LABS: Alanine Aminotransferase 20 U/L (6-35); Albumin Level 4.5 g/dL (3.5-5.1); Alkaline Phosphatase 76 U/L (38-126); Anion Gap 8 mmol/L (8-16); Aspartate Amino Transferase 22 U/L (14-36); Bilirubin,Total 0.6 mg/dL (0.2-1.3); Blood Urea Nitrogen 12 mg/dL (7-17); Calcium 9.2 mg/dL (8.4-10.2); Carbon Dioxide 28 mmol/L (22-30); Chloride 101 mmol/L (98-107); Cholesterol 197 mg/dL (0-200); Estimated Glomerular Filt Rate > 60; Glucose 103 mg/dL (65-110); HDL Direct 41 mg/dL; Sodium 137 mmol/L (137-145); Triglycerides 169 mg/dL (<150)
[2022-08-06 08:40] LABS: Mucus Urine Rare /lpf; Squamous Epithelial Cell Urine Occasional /hpf (Few); WBC Urine 0-3 /hpf
[2022-08-06 08:41] LABS: Add Urine Microscopic? YES
[2022-08-06 08:47] LABS: LDL Cholesterol Direct 91 mg/dL
[2022-08-06 09:14] LABS: Free T4 Free Thyroxine 0.59 ng/mL (0.78-2.19)
[2022-08-06 10:17] LABS: Hemoglobin A1C 5.6 % (<5.7)
[2022-08-10 13:49] LABS: Insulin Level Total 14.5 uIU/mL (<=19.6)
== END 2022-08-06 07:32 | disposition home or self-care (01) ==
PROVIDERS: PCP Physician Assistant; Visit Provider Physician Assistant
DX: E03.9 Hypothyroidism, unspecified (principal); Z79.899 Other long term (current) drug therapy; Z68.39 Body mass index [BMI] 39.0-39.9, adult; Z13.1 Encounter for screening for diabetes mellitus; Z13.220 Encounter for screening for lipoid disorders
CPT/HCPCS: 36415; 80053; 80061; 81001; 83036; 83525; 84439; 84443; 84481; 85025

== ENCOUNTER 2022-10-05 11:27 | Outpatient (CLI) | payer OTHER, SELFPAY ==
--- NOTE | ~2022-10-05 | US_ITS ---
EXAMINATION: US thyroid DATE: 10/05/2022 11:55 INDICATION: Nontoxic goiter. TECHNIQUE: Multiple ultrasound images of the thyroid were obtained. COMPARISON: None. FINDINGS: The right thyroid lobe measures 4.9 x 1.6 x 1.8 cm. The left thyroid lobe measures 4.8 x 1.7 x 1.9 c m. In the left thyroid lobe, there is a 10 mm solid, hypoechoic, wider than tall nodule with lobulat ed margin without echogenic foci (TI-RADS TR4). The thyroid demonstrates coarsened echotexture and in creased vascularity. IMPRESSION: 1. Thyroid nodule. Thyroid ultrasound is recommended in one year. 2. Heterogeneous, hypervascular thyroid, consistent with chronic lymphocytic (Linda) thyroiditis. Reviewed, dictated and finalized at location A. IMPRESSION: 1. Thyroid nodule. Thyroid ultrasound is recommended in one year. 2. Heterogeneous, hypervascular thyroid, consistent with chronic lymphocytic (H ashimoto) thyroiditis.
== END 2022-10-05 11:28 | disposition home or self-care (01) ==
LOC: ANHIMG 11:28
PROVIDERS: PCP Physician Assistant; Visit Provider Internal Medicine Endocrinology, Diabetes & Metabolism
DX: E04.1 Nontoxic single thyroid nodule (principal)
CPT/HCPCS: 76536

== ENCOUNTER 2022-10-29 07:14 | Outpatient (CLI) | payer OTHER, SELFPAY ==
[2022-10-29 08:06] LABS: Hemoglobin A1C 5.5 % (<5.7)
[2022-10-29 08:12] LABS: Alanine Aminotransferase 28 U/L (6-35); Albumin Level 4.4 g/dL (3.5-5.1); Alkaline Phosphatase 53 U/L (38-126); Anion Gap 9 mmol/L (8-16); Aspartate Amino Transferase 28 U/L (14-36); Bilirubin,Total 0.3 mg/dL (0.2-1.3); Blood Urea Nitrogen 13 mg/dL (7-17); Calcium 9.2 mg/dL (8.4-10.2); Carbon Dioxide 25 mmol/L (22-30); Chloride 106 mmol/L (98-107); Estimated Glomerular Filt Rate > 60; Glucose 113 mg/dL (65-110); Potassium 4.2 mmol/L (3.4-5.0); Sodium 140 mmol/L (137-145)
[2022-10-29 08:30] LABS: Free T4 Free Thyroxine 1.29 ng/mL (0.78-2.19)
[2022-10-29 08:34] LABS: Thyroid Stimulating Hormone 0.177 uIU/mL (0.465-4.680)
[2022-11-03 04:17] LABS: FSH 7.6 mIU/mL (***); LH 3.8 mIU/mL (***); Progesterone 0.3 ng/mL (***); Prolactin 3.3 ng/mL (***); Triiodothyronine T3 Free 3.1 pg/mL (2.3-4.2)
[2022-11-03 13:35] LABS: DHEA-Sulfate 136 mcg/dL (23-266)
[2022-11-04 20:47] LABS: Testosterone Total 134 ng/dL (2-45)
[2022-11-05 06:33] LABS: Thyroid Peroxidase Antibodies 1 IU/mL (<9)
[2022-11-08 04:42] LABS: Estradiol, Ultrasensitive 38 pg/mL
[2022-11-08 07:58] LABS: Reference Lab Test Result 71
[2022-11-10 14:42] LABS: Insulin Level Total 23.1 uIU/mL (<=19.6)
== END 2022-10-29 07:15 | disposition home or self-care (01) ==
LOC: ANHLAB 07:17
PROVIDERS: PCP Physician Assistant; Visit Provider Internal Medicine Endocrinology, Diabetes & Metabolism
DX: E03.9 Hypothyroidism, unspecified (principal); R73.01 Impaired fasting glucose; L68.0 Hirsutism; E04.9 Nontoxic goiter, unspecified
CPT/HCPCS: 36415; 80053; 82607; 82627; 82670; 82746; 83001; 83002; 83036; 83525; 84144; 84146; 84402; 84403; 84439; 84443; 84481; 86376

== ENCOUNTER 2023-03-07 09:41 | Outpatient (CLI) | payer OTHER, SELFPAY ==
[2023-03-07 10:45] LABS: Alanine Aminotransferase 22 U/L (6-35); Alkaline Phosphatase 64 U/L (38-126); Anion Gap 9 mmol/L (8-16); Aspartate Amino Transferase 31 U/L (14-36); Bilirubin,Total 0.3 mg/dL (0.2-1.3); Blood Urea Nitrogen 9 mg/dL (7-17); Calcium 9.3 mg/dL (8.4-10.2); Carbon Dioxide 24 mmol/L (22-30); Chloride 104 mmol/L (98-107); Estimated Glomerular Filt Rate > 60; Glucose 92 mg/dL (65-110); Potassium 4.3 mmol/L (3.4-5.0); Sodium 137 mmol/L (137-145)
[2023-03-07 10:57] LABS: Hemoglobin A1C 5.3 % (<5.7)
[2023-03-07 11:17] LABS: Thyroid Stimulating Hormone Reflex 0.986 uIU/mL (0.465-4.68)
[2023-03-07 11:40] LABS: Folic Acid 12.5 ng/mL (2.76->20)
[2023-03-10 03:21] LABS: Insulin Level Total 12.2 uIU/mL (<=19.6); Thyroid Peroxidase Antibodies 1 IU/mL (<9)
[2023-03-10 07:05] LABS: Triiodothyronine T3 Free 3.3 pg/mL (2.3-4.2)
[2023-03-10 11:08] LABS: Testosterone Total 26 ng/dL (2-45)
== END 2023-03-07 09:42 | disposition home or self-care (01) ==
PROVIDERS: PCP Physician Assistant; Referring Provider Internal Medicine Endocrinology, Diabetes & Metabolism; Visit Provider Obstetrics & Gynecology
DX: R79.89 Other specified abnormal findings of blood chemistry (principal); E03.9 Hypothyroidism, unspecified; R73.01 Impaired fasting glucose
CPT/HCPCS: 36415; 80053; 82607; 82746; 83036; 83525; 84402; 84403; 84443; 84481; 86376

== ENCOUNTER 2023-10-28 12:09 | Outpatient (CLI) | payer OTHER, SELFPAY ==
[2023-10-28 13:30] LABS: Alanine Aminotransferase 24 U/L (6-35); Albumin Level 4.3 g/dL (3.5-5.1); Alkaline Phosphatase 61 U/L (38-126); Anion Gap 7 mmol/L (4-12); Aspartate Amino Transferase 31 U/L (14-36); Bilirubin,Total 0.3 mg/dL (0.2-1.3); Blood Urea Nitrogen 11 mg/dL (7-17); Calcium 9.8 mg/dL (8.4-10.2); Carbon Dioxide 27 mmol/L (22-30); Chloride 106 mmol/L (98-107); Estimated Glomerular Filt Rate > 60; Glucose 119 mg/dL (65-110); Potassium 3.8 mmol/L (3.4-5.0); Sodium 140 mmol/L (137-145)
[2023-10-28 13:34] LABS: Hemoglobin A1C 5.4 % (<5.7)
[2023-10-28 13:52] LABS: Free T4 Free Thyroxine 1.02 ng/mL (0.78-2.19)
[2023-10-28 14:01] LABS: Total Triiodothyronine (T3) 1.56 NG/ML (0.97-1.69)
== END 2023-10-28 12:10 | disposition home or self-care (01) ==
LOC: ANHLAB 12:10
PROVIDERS: PCP Family Medicine; Referring Provider Obstetrics & Gynecology; Visit Provider Family Medicine
DX: E88.819 Insulin resistance, unspecified (principal); E03.9 Hypothyroidism, unspecified; Z13.1 Encounter for screening for diabetes mellitus; I10 Essential (primary) hypertension
CPT/HCPCS: 36415; 80053; 83036; 84439; 84443; 84480

== ENCOUNTER 2024-10-29 07:19 | Outpatient (CLI) | payer OTHER, SELFPAY ==
--- OUTSIDE RECORDS SUMMARY | 2024-10-29 07:25 | XMS_ITS | Clinical Summary ---
Author Organization [facility] Address [address] [place] [address] Care Team Providers Care Data Services Developer Name Role Phone Dunia Hernandez Primary Care Pr ovider Source Comments [facility],non-owned Affiliates and Associated Physician Practices is amultiple site organization consisting of ambulatory clinics and hospital sitesin [place], [place], [place] and [place]. This disclosure is being madepursuant to the Care Everywhere program and may not contain all information available regarding this patient. 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 Gender Identity Not on file Sexual Orientation Not on file Plan of Treatment Health Maintenance Due Date Last Done Comments HIV SCREENING 2005 HEPATITIS C SCREENING 03/08/2008 DTAP/TDAP/TD VACCINES (1 - Tdap) 2009 HEPATITIS B VACCINE (1 of 3 - 19+ 3-dose series) 2009 COVID-19 VACCINE ( - 2023-2 5 season) 2024 DEPRESSION SCREENING 06/27/2024 INFLUENZA VACCINE (Season Ended) 2025 ZOSTER VACCINE (1 of 2) 2040 HIB VACCINE Aged Out No longer eligi ble based on patient's age to complete this topic HPV VACCINE Aged Out No longer eligi ble based on patient's age to complete this topic MENINGOCOCCAL (Group B) VACC INE SHARED DECISION-MAKING Aged Out No longer eligibl e based on patient's age to complete this topic MENINGOCOCCAL GROUPS A/C/Y/W VACCINE Aged Out No longer eligible b ased on patient's age to complete this topic PNEUMOCOCCAL VACCINE Aged Out No long er eligible based on patient's age to complete this topic Insurance ANTHEM Care Teams Data Services Developer Relationship Specialty Start Date End Date Dunia Hernandez PA [address] [place] [address] [place] [id number] PCP - General Physician Insurance Service Representative 06/16/17
--- OUTSIDE RECORDS SUMMARY | 2024-10-29 07:26 | XMS_ITS | Data Portability ---
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 Plan of Treatment Reminders Order Date Submit Date Provider Last Modified By Organization Details Last Modified Time Details Appointments None recorded. Lab HbA1c (hemoglobin A1c), blood 2022 023 [facility] (Lab), [address] [place] [address], [address], 3 10:25:33 insulin, serum [address] (Lab), [address] [place] [address], [address], 3 14:49:17 iodine, serum [address] (Lab), [address] [place] [address], [address], 3 14:49:17 dhea-sulfat e, serum [address] (Lab), [address] [place] [address], [address], 3 14:49:18 testosteron e, free + total, serum [address] (Lab), [address] [place] [address], [address], 3 14:49:18 lh + FSH, serum 2022 023 [facility] (Lab), [address] [place] [address] [address], [place], [address], 3 08:08:41 estradiol, serum 2022 023 [facility] (Lab), [address] [place] [address] [address], [place], [address], 3 15:56:58 progesteron e, serum 2022 023 [facility] (Lab), [address] [place] [address] [address], [place], [address], 3 16:21:56 prolactin, serum [address] (Lab), [address] [place] [address] [address], [place], [address], 3 14:49:17 T3, free, serum or plasma [address] (Lab), [address] [place] [address] [address], [place], [address], 3 14:49:17 TSH + free T4, serum 2022 023 [facility] (Lab), [address] [place] [address] [address], [place], [address], 3 10:25:33 CMP, serum or plasma 2022 023 [facility] (Lab), [address] [place] [address] [address], [place], [address], 3 10:25:32 thyroid peroxidase (tpo) Ab, serum [address] (Lab), [address] [place] [address] [address], [address], 3 14:49:17 vitamin B12 + folate, serum or blood [address] (Lab), [address] [place] [address], [place], [address], 3 14:49:18 Referral None recorded. Procedures None recorded. Surgeries None recorded. Imaging US, thyroid 2022 023 [facility], [address], [place], [address], 3 13:39:51 Medication Orders metformin ER 500 mg tablet,exte nded release 24 hr 2022 023 [facility] #[id number], [address] [place] [address], [id number], 3 14:35:09 Synthroid 88 mcg tablet 2022 023 [facility] #[id number], [address] [place] [address], [id number], 3 14:35:09 metformin ER 500 mg tablet,exte nded release 24 hr 2022 023 [facility] #[id number], [address] [place] [address], [id number], 3 15:56:23 Patient TargetsNo targets recorded. Patient InstructionsNo instructions recorded. Reason for Referral None Reported. Results Created Date Observation Date Name Description Value Unit Range Abnormal Flag Note LastModifiedBy Organization Detail LastModifiedTime 10/06/19 23 10/05/2022 US, thyro id No observ ation record ed. [email or web address] [facility] [address], [place], [address], 11/01/2022 11:38:17 Result Notes None recorded. Problems Name Problem SNOMED Code Status Onset Date Resolution Date Notes Provider Name and Address Organization Details Recorded Time Mixed hyperlipid emia 210450811 Active 2018 Not Available [facility] 3 02:51:06 Hypothyroi dism 17960280 Active 2021 Not Available [facility] 3 02:51:06 Dyssomnia 81096510 Active 2018 Not Available [facility] 3 02:51:06 Sesamoidit is 03144497 Active 2017 Not Available [facility] 3 02:51:06 06820503 Completed 202004/06/2021 Not Available [facility] 3 02:51:06 18626912 Completed 201606/14/2017 Not Available [facility] 3 02:51:06 Impaired fasting glycemia 034319975 Active 2022 Nick Kraft MD [address], [place], [address] , [employer] 3 14:42:31 Hirsutism 622383844 Active 2022 Nick Kraft MD [address], [place], [address] , [facility] 3 14:42:48 Goiter 6829318 Active 2022 Nick Kraft MD [address], [place], [address] , [facility] 3 14:43:12 Vitamin B12 deficiency (non anemic) 72285750 Active 2022 Nick Kraft MD [address], [place], [address] , [facility] 3 19:54:51 Abnormal testostero ne 115437578 Active 2022 Nick Kraft MD [address], [place], [address] , [facility] 3 22:08:27 Hypothyroi dism due to Linda' s thyroiditi s 696034618 Active 2022 Nick Kraft MD [address], [place], [address] , [facility] 3 14:33:59 Problem Notes None recorded. Procedures Surgical History Date Name Laterality Status Provider Name and Address Organization Details Recorded Time 1 section completed Not Available [facility] 08/25/2022 02:44:54 7 section completed Not Available [facility] 08/25/2022 02:44:54 other completed Not Available [facility] 06/2022 02:44:54 Imaging Results Imaging Date Name Status LastModified by Organiz ation Details LastModified Time 10/05/2022 US, thyroid completed [facility] [address], [place], [address], 11/01/2022 11:38:17 Procedure Notes None recorded. Medical Equipment None Reported. Allergies Allergen ID Allergen Name Allergen Category Reaction Reaction Severity Criticality Documentation Date Start Date Code Code System Note Provider Name and Address Organization Details Recorded Time 4555 Product containin g penicilli n (product) medicatio n rash Not available Not available 08/25/2022 40995 8001 SNOMED Not Available [facility] 02:59:02 Medications Name Sig Start Date Stop Date Status Note LastModified by Organization Details LastModified Time id now influenza a & b 2 test kit TEST DIRECTED TODAY active Not Available Not Available No t Available insulin syringe/u -100/1ml/ 31g x 5/1 6 31g x 5/16 1 ml misc active Not Available Not Available Not Available amoxicill in 500 mg capsule 01/29 completed Not Available Not Available Not Available azithromy ede 250 mg tablet TK 2 TS PO ON DAY 1, THEN TK 1 T PO D FOR 4 DAYS 06/11 completed Not Available Not Available Not Available fluconazo le 150 mg tablet TAKE 1 TABLET BY MOUTH DAILY 10/01 completed Not Available Not Available Not Available hydrocodo ne 5 mg-acetam inophen 325 mg tablet TK 1-2 TS PO Q 4-6 H PRN 05/06 completed Not Available Not Available Not Available ondansetr on HCl 4 mg tablet TAKE 1 TABLET BY MOUTH EVERY 6 TO 8 HOURS NEEDED 05/06 completed Not Available Not Available Not Available phentermi ne 15 mg capsule TAKE 1 CAPSULE BY MOUTH DAILY 06/11 completed Not Available Not Available Not Available sulfameth oxazole 800 mg-trimet hoprim 160 mg tablet TAKE 1 TABLET BY MOUTH TWICE DAILY FOR 10 DAYS 04/01 completed Not Available Not Available Not Available amoxicill in 500 mg tablet TAKE 1 TABLET BY MOUTH TWICE DAILY FOR 10 DAYS 06/11 completed Not Available Not Available Not Available levothyro xine 75 mcg tablet TAKE 1 TABLET BY MOUTH EVERY DAY active Not Available Not Available No t Available oxycodone -acetamin ophen 5 mg-325 mg tablet 07/12 completed Not Available Not Available Not Available alprazola m 0.25 mg tablet TAKE 1 TABLET BY MOUTH TWICE DAILY NEEDED FOR SLEEP active Not Available Not Available No t Available Synthroid 25 mcg tablet Take 1 tablet every day by oral route in the morning. 10/15 completed Not Available Not Available Not Available benzonata te 100 mg capsule Take 1 capsule 3 times a day by oral route for 10 days. 12/26 completed Not Available Not Available Not Available levothyro xine 50 mcg tablet TAKE 1 TABLET BY MOUTH EVERY DAY 01/21 completed Not Available Not Available Not Available cephalexi n 500 mg capsule Take 1 capsule every 12 hours by oral route for 10 days. active Not Available Not Available No t Available cyanocoba shayla (vit B-12) 1,000 mcg/mL injection solution ADMINIST ER 1 ML UNDER THE SKIN EVERY WEEK IN THE MORNING active Not Available Not Available No t Available Synthroid 88 mcg tablet Take 1 tablet(s ) every day by oral route in the morning for 90 days. 2022 active Not Available Not Available Not Avai lable insulin syringe U-100 with needle 1 mL 31 gauge x 5/16 USE TO INJECT B12 UNDER THE SKIN ONCE WEEKLY FOR 90 DAYS active Not Available Not Available No t Available ibuprofen 600 mg tablet TAKE 1 TABLET BY MOUTH EVERY 6 HOURS NEEDED FOR CRAMPING 05/06 completed Not Available Not Available Not Available methylpre dnisolone 4 mg tablets in a dose pack FOLLOW PACKAGE DIRECTIO NS 10/01 completed Not Available Not Available Not Available albuterol sulfate HFA 90 mcg/actua tion aerosol inhaler INHALE 1 PUFF EVERY 4 HOURS NEEDED FOR SHORTNES S OF BREATH OR WEEZING 10/01 completed Not Available Not Available Not Available hydrocort isone 2.5 % topical ointment APPLY TO THE AFFECTED AREA AROUND EYES TWICE DAILY NEEDED UP TO 2 WEEKS AT A TIME active Not Available Not Available No t Available cefdinir 300 mg capsule Take 1 capsule every 12 hours by oral route. active Not Available Not Available No t Available metformin ER 500 mg tablet,ex tended release 24 hr Take 1 tablet every day by oral route at dinner for 90 days. active Not Available Not Available No t Available metoclopr amide 10 mg tablet TAKE 1 TABLET BY MOUTH EVERY 6 TO 8 HOURS NEEDED 05/06 completed Not Available Not Available Not Available Zovirax 5 % topical cream APPLY TOPICALL Y AA Q 3 H 11/15 completed Not Available Not Available Not Available nitrofura ntoin monohydra te/macroc rystals 100 mg capsule TAKE 1 CAPSULE BY MOUTH EVERY 12 HOURS FOR 7 DAYS 05/06 completed Not Available Not Available Not Available Boostrix Tdap 2.5 Lf unit-8 mcg-5 Lf/0.5 mL intramusc ular syringe ADM 0.5ML IM UTD 07/12 completed Not Available Not Available Not Available Zyrtec daily 2020 active Not Available Not Available Not Avai lable drospiren one 3 mg-ethiny l estradiol 0.02 mg tablet TAKE 1 TABLET BY MOUTH DAILY active Not Available Not Available No t Available BIOMETRIC SCREENER Thyroid 60 mg tablet Take 1 tablet every day by oral route for 30 days. 04/01 completed Not Available Not Available Not Available Lo Loestrin Fe 1 mg-10 mcg (24)/10 mcg (2) tablet Take 1 tablet every day by oral route. 01/29 completed 3 samples Not Available Not Available Not Available Lo Loestrin Fe 09/08 completed Not Available Not Available Not Available ID NOW COVID-19 Test Kit TEST DIRECTED TODAY active Not Available Not Available No t Available Vitals Date Recorded Body height Body mass index (BMI) Body weight Body temperature Heart rate Systolic blood pressure Diastolic blood pressure Provider Name and Address Organization Details Last Updated DateTime 3 165.1 cm 39.6 kg/m2 159124. 98 g 97.7 [degF] 67 /min 132 mm[Hg] 86 mm[Hg] ALBERTO Chun [place] [facility] [employer] [facility] 3 14:10:59 Date Recorded Body height Body mass index (BMI) Body weight Heart rate Systolic blood pressure Diastolic blood pressure Provider Name and Address Organization Details Last Updated DateTime 3 165.1 cm 37.8 kg/m2 771676. 47 g 79 /min 133 mm[Hg] 91 mm[Hg] Ella Winston [facility] [employer] [facility] 3 14:11:13 Date Recorded Body mass index (BMI) Body height Body weight Systolic blood pressure Diastolic blood pressure Provider Name and Address Organization Details Last Updated DateTime 05/06/2021 36.3 kg/m2 165.1 cm 62332.14 g 117 mm[Hg] 62 mm[Hg] Not Available [facility] 3 02:47:05 Date Recorded Body mass index (BMI) Body height Oxygen saturation Oxygen saturation in Arterial blood by Pulse oximetry Heart rate Body temperature Body weight Systolic blood pressure Diastolic blood pressure Systolic blood pressure Diastolic blood pressure Provider Name and Address Organization Details Last Updated DateTime 1 37.7 kg/m2 165.1 cm 98 % 98 % 70 /min 97.5 [degF] 914538. 95 g 120 mm[Hg] 80 mm[Hg] 110 mm[Hg] 78 mm[Hg] Not Available [facility] 3 02:47:05 Date Recorded Body mass index (BMI) Body height Oxygen saturation Oxygen saturation in Arterial blood by Pulse oximetry Heart rate Respiratory rate Body temperature Body weight Systolic blood pressure Diastolic blood pressure Provider Name and Address Organization Details Last Updated DateTime 2 39.1 kg/m2 165.1 cm 97 % 97 % 100 /min 16 /min 97.6 [degF] 650957. 21 g 122 mm[Hg] 78 mm[Hg] Not Available [facility] 3 02:47:05 Social History Question Answer Notes LastModified by Organizat ion Details LastModified Time Tobacco Smoking Status Never Smoker Not Available [facility] 08/25/2022 02:35:35 What Is Your Level Of Alcohol Consumption? None [id number] Information not available 08/25/2022 What Is Your Level Of Caffeine Consumption? Moderate [id number] Information not available 08/25/2022 In The 14 Days Before Symptom Onset, Have You Had Close Contact With A Laboratory-confir med COVID-19 While That Case Was Ill? No [id number] Information not available 08/25/2022 In The 14 Days Before Symptom Onset, Have You Had Close Contact With A Person Who Is Under Investigation For COVID-19 While That Person Was Ill? No [id number] Information not available 08/25/2022 What Type Of Diet Are You Following? REGULAR Information not available 10/01/2022 Which Illicit Or Recreational Drugs Have You Used? None [id number] Information not available 08/25/2022 Do You Or Have You Ever Used E-cigarettes Or Vape? 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 Information not available 10/01/2022 Do You Use Your Seat Belt Or Car Seat Routinely? Yes Information not available 10/01/2022 Do You Feel Stressed (tense, Restless, Nervous, Or Anxious, Or Unable To Sleep At Night)? [id number] Information not available 10/01/2022 Have You Recently Traveled Abroad? No Information not available 10/01/2022 Do You Have Any Dietary Restrictions? No Information not available 10/01/2022 Sex: Unknown Functional Status Question Answer Note LastModified by Organizat ion Details LastModified Time What is your exercise level? Moderate [id number] Information not available 08/25/2022 Mental Status None recorded. Family History Relationship Description Onset Age of this Age Resolved Age Notes LastModified by Organization Details LastModified Time Mother Hypertensive disorder [id number] Not available 08/25/2022 02:44:57 Mother Hypercholest erolemia [id number] Not available 08/25/2022 02:44:57 Mother Prediabetes [id number] 0 [id number] Not available 08/25/2022 02:44:57 Maternal Grandfather Diabetes mellitus [id number] Not available 08/25/2022 02:44:57 Paternal Grandmother Diabetes mellitus [id number] Not available 08/25/2022 02:44:57 Maternal Grandmother Low blood pressure [id number] Not available 08/25/2022 02:44:57 Mother Diabetes mellitus Not available 2022 14:13:40 Medical History Condition Response THYROID DISEASE Y HEADACHES/MIGRAINES Y CARDIAC ARRHYTHMIA Y ANXIETY DISORDER Y SURGERY Y HYPOTHYROIDISM Y SHINGLES Y Gynecological History Statement/Question Response Abnormal Pap N Date of Last Colonoscopy Most Recent Bone Density Sexually Active? Y Menses Monthly N Date of Last Pap 01/25/2019 Current Control Method None Age at Menarche 12 Obstetrics History GPAL:G 2 P 2 0 0 2 Type Value Full Term 2 Living 2 Total 2 Immunizations Vaccine Type Date Status Note Provider Nam e and Address Organization Details Recorded Time Tdap 05/12/2017 completed Not Available [facility] 08/25/2022 02:58:45 Tdap 02/20/2021 completed Not Available [facility] 08/25/2022 02:58:45 Past Encounters Encounter ID Performer Location Encounter Start Date Encounter Closed Date Diagnosis/Indication Diagnosis SNOMED-CT Code Diagnosis ICD10 Code Diagnosis Note [id number] [facility]_ DEFAULT_1 _1 , 10/17/2020 00:00:00 10/17/2020 10:03:59 [id number] [facility]_ DEFAULT_1 _1 , 11/18/2020 00:00:00 11/18/2020 12:27:33 [id number] ANTOINE Us [facility] [address] [place] [address] 11/19/2020 00:00:00 11/19/2020 23:40:29 [id number] [facility]_ DEFAULT_1 _1 , 12/18/2020 00:00:00 12/18/2020 14:12:59 [id number] [facility]_ DEFAULT_1 _1 , 01/23/2021 00:00:00 01/23/2021 12:36:56 [id number] [facility]_ DEFAULT_1 _1 , 02/03/2021 00:00:00 02/03/2021 15:18:04 [id number] [facility]_ DEFAULT_1 _1 , 02/17/2021 00:00:00 02/17/2021 16:05:09 [id number] ANTOINE Us [facility] [address] [place] [address] 02/20/2021 00:00:00 02/22/2021 11:51:12 [id number] [facility]_M [facility]_ DEFAULT_1 _1 , 03/04/2021 00:00:00 03/04/2021 09:32:10 [id number] [facility]_ DEFAULT_1 _1 , 03/10/2021 00:00:00 03/10/2021 09:58:37 [id number] [facility]_ DEFAULT_1 _1 , 03/17/2021 00:00:00 03/17/2021 09:04:14 [id number] [facility]_ DEFAULT_1 _1 , 03/24/2021 00:00:00 03/24/2021 09:28:12 [id number] [facility]_ DEFAULT_1 _1 , 04/01/2021 00:00:00 04/01/2021 09:23:48 [id number] [facility]_M [facility]_ DEFAULT_1 _1 , 05/06/2021 00:00:00 05/06/2021 11:46:24 [id number] ANTOINE Us [facility] [address] [place] [address] 05/28/2021 00:00:00 06/23/2021 23:13:49 [id number] ANTOINE Us [facility] [address] [place] [address] 06/11/2022 00:00:00 06/25/2022 01:25:15 [id number] Nick Kraft MD [facility] [address] [place] [address] 10/01/2022 14:02:16 10/01/2022 14:52:46 Hypothyroidism 23598396 E03.9 patient current on BIOMETRIC SCREENER thyroid and FT4 levels are markedly low indicative of poor thyroid control and replacemen t. Patient is currently on natural thyroid hormone. Discussed and explained to patient that natural thyroid is generally 70% T3 and <30% T4 hormone and this is why it is generally dosed twice daily due to uptake and utilizatio n of active thyroid hormone which further leads to suppressio n of TSH. Discussed with patient that natural thyroid hormone is not controlled and generally we cannot know for sure how much thyroid hormone she is getting per batch of medication she receives so generally the DEYSI does not support the use of natural supplement s for this reason. However she is willing to obtain labwork and titrate her medication to safe range therefore due to her level of compliance and understand ing I will work with her to optimize her levels. Discussed that there is a new formulatio n of T4 called tirosint that has no fillers and this may be a more optimal formulatio n to trial. She will consider this and if we could titrate her to normal range on BIOMETRIC SCREENER perhaps there could be some use of both formulatio ns at small doses in the future. We could also trial on synthroid for best consistenc y and lowest ramos. Will transition to synthroid 88 mcg daily (6 week samples provided) as this is most consistent in control. She was reminded to take her synthroid on empty stomach with glass of water and wait one hour to eat or have her coffee in morning and up to 4 hours if ever taking any heartburn or reflux medication s to help optimize absorption . Discussed paleo like diet with restrictio n of GMOs to help with energy and to optimize absorption of vitamins and minerals and reduce inflammati on. Impaired f asting glycemia 978264503 R73.01 Trial on metformin Er 500 mg daily with dinner. Discussed carb counting and how to read food labels. Recommende d patient to utilize the diabetesfo Idea.me.Memolane from the ADA website to help with food preparatio n as this presents ideal carb content per meal so this will make carb counting much easier for patient. Recommende d she incorporat e natural insulin veterinary assistant s such as pears, apples, cinnamon, maxime and sweet potatoes to help mobilize her endogenous insulin. Recommende d up to 150 minutes of moderate level activity/e xercise weekly. Hirsutism 022031146 L68. 0 Send for full hormone panel- she was getting testostero ne pellets at unknown dosing and since she has noted more facial hair and more hair loss concerning for levels higher than recommende d for control. She has no further energy or improvemen t of libido and wanting to correct her thyroid before looking into further hormone therapy as recommende d. Repeat levels in early october as last insertion completed in july to assess endogenous function. Goiter 0371676 E04.9 Will send for baseline thyroid ultrasound as she does have a palpable thyroid and repeat thyroid function panel to assess function. Spent up to 45 minutes preparing to see the patient (eg, review of tests), obtaining and/or reviewing separately obtained history, performing a medically appropriat e examinatio n and evaluation , counseling and educating the patient, ordering medication s, tests, along with documentin g clinical informatio n in the electronic health record, independen tly interpreti ng results and communicat ing results to the patient. RTC in 3-4 months. Patient was provided a handwritte n lab order which contains our fax number. If she chooses to go outside of the [facility] system to obtain labwork she was advised to provide our fax number and my informatio n to the lab she will be obtaining labwork from in order to have her labs properly forwarded over for me to review so there is no loss of follow up due to use of outside network. She was also advised to contact our clinic informing us that she has completed her labwork so we are aware we will need to reach out to the appropriat e laboratory to request her results be forwarded to us so I might have the ability to review and make further medical decision making in her case. She voiced understand ing. Thank you for this consultati on. 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 She was reminded to take her synthroid on empty stomach with glass of water and wait one hour to eat or have her coffee in morning and up to 4 hours if ever taking any heartburn or reflux medication s to help optimize absorption . Discussed paleo like diet with restrictio n of GMOs to help with energy and to optimize absorption of vitamins and minerals and reduce inflammati on. Impaired f asting glycemia 091591672 R73.01 Continue on metformin Er 500 mg daily with dinner. Recommende d she incorporat e natural insulin veterinary assistant s such as pears, apples, cinnamon, maxime and sweet potatoes to help mobilize her endogenous insulin. Recommende d up to 150 minutes of moderate level activity/e xercise weekly. Recommende d she adhere to at least 1200 calorie per day intake with multiple small 300-400 calorie meals (4-5 small meals per day) on sedentary days up to 1600 calories on days she is able to undergo moderate level activity at least 30-40 minutes with 20 minutes of that time at 70% of her target heart rate in order to reach total caloric output and assist in weight loss. She is motivated and willing to go to gym daily and discussed cutting out GMOs along with preservati ves and focusing on fruits, veggies, unprocesse d beans and nuts along with meats for the bulk of her diet. Spent up to 25 minutes preparing to see the patient (eg, review of tests), obtaining and/or reviewing separately obtained history, performing a medically appropriat e examinatio n and evaluation , counseling and educating the patient, ordering medication s, tests, along with documentin g clinical informatio n in the electronic health record, independen tly interpreti ng results and communicat ing results to the patient. Patient can be followed by PCP - she/he is aware of my resignatio n and last day of April 08. If needed his/her PCP can refer patient to another endocrinol ogist in the area. All questions /concerns answered and refills necessary at visit today. Health Concerns Section Related Observation LastModified by Organization Matilda rivas LastModified Time None Recorded Concern Status LastModified by Organization Details LastModified Time None Recorded Advance Directives Directive None Recorded Payers Encounter Date Sequence Insurance Name Policy Number Policy Mccabe Covered Member ID Mccabe Member ID Guarantor Name 10/01/2022 1 [facility] [id number] Lexie Vazquezwallace [id number] Lexie Vazquezwallace 04/01/2023 1 [facility] [id number] Lexie Vazquezwallace [id number] Lexie Vazquezwallace Notes Date Note Type Note Provider Name and Address Organization Details Recorded Time 1 text/html HypothyroidismReported bypatient.Onset/Timing:bet ter Context/Risk:normal thyroid levels; no history of head or neck radiation during childhood; no history of thyroid disease; no history of hypothyroidism; no history of hyperthyroidism; no excess iron exposure Exercisegets exercise Associated Symptoms:no cold intolerance; no heat intolerance; no weight loss; no weight gain; no double vision; no dry eyes; no hoarseness; no difficulty swallowing; no neck masses; no deepening of the voice; no fast heart rate; no increased blood pressure; no palpitations; no chest pain; no chest tightess or pressure; no constipation; no diarrhea; no vomiting; no decreased appetite; no loose stools; no irregular menstrual periods; no excessive sweating; no joint pain; no numbness; no tingling of the hands or feet; no dry skin; no tremor; no nervousness; no anxiety; no depression; no fatigue; no sleep difficulties; no skin changes; no hair changes Not Available [facility] [employer] [facility] 06/23/2021 23:13:49 2 text/html HypothyroidismReported bypatient.Quality:not changing Duration:constant Onset/Timing:better Context/Risk:normal thyroid levels; no history of head or neck radiation during childhood; no history of thyroid disease; no history of hyperthyroidism; no excess iron exposure;history of hypothyroidism;female gender Modifying Factors:medication Exerciseno exercise Associated Symptoms:no cold intolerance; no heat intolerance; no weight loss; no weight gain; no double vision; no dry eyes; no hoarseness; no difficulty swallowing; no neck masses; no deepening of the voice; no fast heart rate; no increased blood pressure; no palpitations; no chest pain; no chest tightess or pressure; no constipation; no diarrhea; no vomiting; no decreased appetite; no loose stools; no irregular menstrual periods; no excessive sweating; no joint pain; no numbness; no tingling of the hands or feet; no dry skin; no tremor; no nervousness; no anxiety; no depression; no fatigue; no sleep difficulties; no skin changes; no hair changesNotes:on BIOMETRIC SCREENER thyroid from other provider Not Available [employer] 06/25/2022 01:25:15 3 text/html 32 yo female referred to our clinic by courtesy of Dunia SCHULTZ for management and evaluation of hypothyroidism, weight gain and fatigue. She has been on thyroid replacement since 08/17 during her second . She is on natures throid She is taking testosterone pellets and not sure how many pellets were placed. She is not wanting to do another round. She has always had thick hair under her chin line and now getting more in her sideburn and chinline. She had her last testosterone pellet insertion in July. This helped with energy initially but second round did not. Dunia had her on levothyroxine and functional physician placed her on BIOMETRIC SCREENER- she is currently taking an unknown dose but previously on LT4 75 mcg daily. Her B12 was 593 pg/mL from Sept labs from 08/19:FT4 of 0.59 ng/dLTSH of 1.770 uIU/mla1c 5.6%197/169/41/91glucose 104 mg/dLCr normalLFT normalinsulin 14.5 uU/mlFT3 of 2.8 pg/mL Nick Kraft MD [address] [facility], [facility] [address], [place], [address], [employer] 10/01/2022 16:00:04 3 text/html 33 yo female comes in for follow up in management of hypothyroidism, impaired fasting glucose. last /initial visit in September at that time we transitioned patient off armour thyroid to tirosint 88 mcg daily. now on synthroid due to insurance coverage. we added metformin for hyperglycemia. thyroid u/s from cm nodule in left lobe too small to biopsy, heterogeneous gland She has lost 11 pounds since her last visit. Her goal protein is 150 grams per day. She is not abl to get to 200 grams based on weight. Her cycles are overall regular- they were heavy and painful- started having a lot of cramping and some spotting during ovulation. She had well woman with Dr. Del Cid and started on low dose OCP. She started lo loestrin and still having some minimal cramping outside of her cycle. She might modify her OCP therapy further. labs from 03/07/23:testosterone 23 ng/dLinsulin 12.2 uU/mLFT3 of 3.3 pg/mlTPO 1 IU/mLglucose 92 mg/dLLFT [id number]/folate [id number] of 5.3%TSH of 0.986 uIU/ml Nick Kraft MD [address] [facility] [address], [place], [address], [place] [email or web address] 04/02/2023 12:09:38 OBGyn Episode No OBEpisode recorded.
[2024-10-29 09:12] LABS: Thyroid Stimulating Hormone 0.691 uIU/mL (0.465-4.680)
[2024-10-29 10:18] LABS: Free T4 Free Thyroxine 1.15 ng/dL (0.78-2.19)
== END 2024-10-29 07:20 | disposition home or self-care (01) ==
LOC: ANHLAB 07:22
PROVIDERS: PCP Family Medicine
DX: E03.9 Hypothyroidism, unspecified (principal)
CPT/HCPCS: 36415; 84439; 84443

== ENCOUNTER 2025-05-07 07:43 | Outpatient (CLI) | payer OTHER, SELFPAY ==
--- OUTSIDE RECORDS SUMMARY | 2025-05-07 07:46 | XMS_ITS | Clinical Summary ---
Author Organization [facility] Address [address] [place] [address] Care Team Providers Care Artificial Cherry Maker Name Role Phone Dunia Hernandez Primary Care Pr ovider Source Comments [facility],non-owned Affiliates and Associated Physician Practices is amultiple site organization consisting of ambulatory clinics and hospital sitesin [place], [place], [place] and [place]. This disclosure is being madepursuant to the Care Everywhere program and may not contain all information available regarding this patient. 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 Gender Identity Not on file Sexual Orientation Not on file Plan of Treatment Health Maintenance Due Date Last Done Comments HIV SCREENING 2005 HEPATITIS C SCREENING 03/08/2008 DTAP/TDAP/TD VACCINES (1 - Tdap) 2009 HEPATITIS B VACCINE (1 of 3 - 19+ 3-dose series) 2009 HPV VACCINE (1 - 3-dose SCDM series) 2017 DEPRESSION SCREENING 06/27/2024 COVID-19 VACCINE (1 - 2023-2 5 season) 2025 INFLUENZA VACCINE (#1) 2025 ZOSTER VACCINE (1 of 2) 2040 [...] age to complete this topic Insurance [facility] Address: [facility] [id number] [place] [phone] Care Teams Artificial Cherry Maker Relationship Specialty Start Date End Date Dunia Hernandez PA [address] [place] [address] [place] [id number] PCP - 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
--- OUTSIDE RECORDS SUMMARY | 2025-05-07 07:47 | XMS_ITS | Data Portability ---
Author Organization [place] - [facility] [employer], Main Office Address [address] [place] [address] Care Team Providers Care Finish Remover Name Role Phone MILDRED KRAFT Counseling Services Director Assessment No assessment recorded. Plan of Treatment Reminders Order Date Submit Date Provider Last Modified By Organization Details Last Modified Time Details Appointments None recorded. Lab HbA1c (hemoglobin A1c), blood 2022 023 [facility] (Lab), [address] [place] [address], [address], 3 10:25:33 insulin, serum [address] (Lab), [address] [place] [address], [address], 3 14:49:17 iodine, serum [address] (Lab), [address] [place] [address], [address], 3 14:49:17 dhea-sulfat e, serum [address] (Lab), [address] [place] [address], [address], 3 14:49:18 testosteron e, free + total, serum [address] (Lab), [address] [place] [address], [address], 3 14:49:18 lh + FSH, serum 2022 023 [facility] (Lab), [address] [place] [address] [address], [place], [address], 3 08:08:41 estradiol, serum 2022 023 [facility] (Lab), [address] [place] [address] [address], [place], [address], 3 15:56:58 progesteron e, serum 2022 023 [facility] (Lab), [address] [place] [address] [address], [place], [address], 3 16:21:56 prolactin, serum [address] (Lab), [address] [place] [address] [address], [place], [address], 3 14:49:17 T3, free, serum or plasma [address] (Lab), [address] [place] [address] [address], [place], [address], 3 14:49:17 TSH + free T4, serum 2022 023 [facility] (Lab), [address] [place] [address] [address], [place], [address], 3 10:25:33 CMP, serum or plasma 2022 023 [facility] (Lab), [address] [place] [address] [address], [address], 3 10:25:32 thyroid peroxidase (tpo) Ab, serum [address] (Lab), [address] [place] [address] [address], [address], 3 14:49:17 vitamin B12 + folate, serum or blood [address] (Lab), [address], [place], [address], 3 14:49:18 Referral None recorded. Procedures None recorded. Surgeries None recorded. Imaging US, thyroid 2022 023 [facility], [address], [place], [address], 3 13:39:51 Medication Orders metformin ER 500 mg tablet,exte nded release 24 hr 2022 023 [facility] #[id number], [address] [place] [address], [id number], 3 14:35:09 Synthroid 88 mcg tablet 2022 023 [facility] #[id number], [address] [place] [address], [id number], 3 14:35:09 metformin ER 500 mg tablet,exte nded release 24 hr 2022 023 [facility] #[id number], [address] [place] [address], [id number], 3 15:56:23 Patient TargetsNo targets recorded. Patient InstructionsNo instructions recorded. Reason for Referral None Reported. Results Created Date Observation Date Name Description Value Unit Range Abnormal Flag Note LastModifiedBy Organization Detail LastModifiedTime 10/06/1910/05/2022 US, thyro id No observ ation record ed. [email or web address] [facility] [address], [place], [address], 11/01/2022 11:38:17 Result Notes None recorded. Problems Name Problem SNOMED Code Status Onset Date Resolution Date Notes Provider Name and Address Organization Details Recorded Time 61994194 Completed 201606/14/2017 Not Available [facility] 3 02:51:06 Sesamoidit is 86876140 Active 2017 Not Available [facility] 3 02:51:06 Mixed hyperlipid emia 606186161 Active 2018 Not Available [facility] 3 02:51:06 Dyssomnia 19523137 Active 2018 Not Available [facility] 3 02:51:06 [id number] Completed 202004/06/2021 Not Available [facility] 3 02:51:06 Hypothyroi dism 43001571 Active 2021 Not Available [facility] 3 02:51:06 Impaired fasting glycemia 871329773 Active 2022 Mildred Kraft MD [address], [place], [address] , [facility] 3 14:42:31 Hirsutism 654045755 Active 2022 Mildred Kraft MD [address] [employer], [place], [address] , [facility] 3 14:42:48 Goiter 9936334 Active 2022 Mildred Kraft MD [address], [place], [address] , [facility] 3 14:43:12 Vitamin B12 deficiency (non anemic) 52817774 Active 2022 Mildred Kraft MD [address], [place], [address] , [facility] 3 19:54:51 Abnormal testostero ne 017216444 Active 2022 Mildred Kraft MD [address], [place], [address] , [facility] 3 22:08:27 Hypothyroi dism due to Linda' s thyroiditi s 677304836 Active 2022 Mildred Kraft MD [address], [place], [address] , [facility] 3 14:33:59 Problem Notes None recorded. Procedures Surgical History Date Name Laterality Status Provider Name and Address Organization Details Recorded Time 1 section completed Not Available [facility] 08/25/2022 02:44:54 7 section completed Not Available [facility] 08/25/2022 02:44:54 other completed Not Available [facility] 06/2022 02:44:54 Imaging Results None recorded. Procedure Notes None recorded. Medical Equipment None Reported. Allergies Allergen ID Allergen Name Allergen Category Reaction Reaction Severity Criticality Documentation Date Start Date Code Code System Note Provider Name and Address Organization Details Recorded Time 4555 Product containin g penicilli n (product) medicatio n rash Not available Not available 08/25/2022 73016 8001 SNOMED Not Available [facility] 3 02:59:02 Medications Name Sig Start Date Stop Date Status Note LastModified by Organization Details LastModified Time id now influenza a & b 2 test kit TEST DIRECTED TODAY active Not Available Not Available No t Available insulin syringe/u -100/1ml/ 31g x 5/ 6 31g x 5/16 1 ml misc [...] Not Available Not Available No t Available [employer] Thyroid 60 mg tablet Take 1 tablet [...] Body weight Body temperature Heart rate Systolic And Diastolic Provider Name and Address Organization Details Last Updated DateTime 3 165.1 cm 39.6 kg/m2 077437. 98 g 97.7 [degF] 67 /min 132/86 mm[Hg] ALBERTO Chun [facility] [employer] [facility] 3 14:10:59 Date Recorded Body height Body mass index (BMI) Body weight Heart rate Systolic And Diastolic Provider Name and Address Organization Details Last Updated DateTime 04/01/2023 165.1 cm 37.8 kg/m2 666077.4 7 g 79 /min 133/91 mm[Hg] Ella Winston [place] - [facility] 04/01/2023 14:11:13 Date Recorded Body mass index (BMI) Body height Body weight Systolic And Diastolic Provider Name and Address Organization Details Last Updated DateTime 05/06/2021 36.3 kg/m2 165.1 cm 19946.14 g 117/62 mm[Hg] Not Available [facility] 08/25/2022 02:47:05 Date Recorded Body mass index (BMI) Body height Oxygen saturation Oxygen saturation in Arterial blood by Pulse oximetry Heart rate Body temperature Body weight Systolic And Diastolic Systolic And Diastolic Provider Name and Address Organization Details Last Updated DateTime 1 37.7 kg/m2 165.1 cm 98 % 98 % 70 /min 97.5 [degF] 475555. 95 g 120/80 mm[Hg] 110/78 mm[Hg] Not Available [facility] 3 02:47:05 Date Recorded Body mass index (BMI) Body height Oxygen saturation Oxygen saturation in Arterial blood by Pulse oximetry Heart rate Respiratory rate Body temperature Body weight Systolic And Diastolic Provider Name and Address Organization Details Last Updated DateTime 2 39.1 kg/m2 165.1 cm 97 % 97 % 100 /min 16 /min 97.6 [degF] 908533. 21 g 122/78 mm[Hg] Not Available [facility] 3 02:47:05 Social History Question Answer Notes LastModified by Organizat ion Details LastModified Time Tobacco Smoking Status Never Smoker Not Available [facility] 08/25/2022 02:35:35 What Is Your Level Of Caffeine Consumption? Moderate [id number] Information not available 08/25/2022 In The 14 Days Before Symptom Onset, Have You Had Close Contact With A Laboratory-confirm ed COVID-19 While That Case Was Ill? No [id number] Information not available 08/25/2022 In The 14 Days Before Symptom Onset, Have You Had Close Contact With A Person Who Is Under Investigation For COVID-19 While That Person Was Ill? No [id number] Information not available 08/25/2022 What Type Of Diet Are You Following? REGULAR Information n ot available 10/01/2022 Which Illicit Or Recreational Drugs Have You Used? None [id number] Information not available 08/25/2022 What Is Your Relationship Status? Information not available 10/01/2022 Do You Use Your Seat Belt Or Car Seat Routinely? Yes Information not available 10/01/2022 Have You Recently Traveled Abroad? No Information not available 10/01/2022 Do You Have Any Dietary Restrictions? No Information not available 10/01/2022 Sex: Unknown Functional Status Question Answer Note LastModified by Organizat ion Details LastModified Time What is your level of alcohol consumption? 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 Never used electronic cigarettes [id number] Information not available 08/25/2022 What is your exercise level? Moderate [id number] Information not available 08/25/2022 Mental Status Question Answer Note LastModified by Organization D etails LastModified Time Do you feel stressed (tense, restless, nervous, or anxious, or unable to sleep at night)? [id number] Information not available 10/01/2022 Family History Relationship Description Onset Age of this Age Resolved Age Notes LastModified by Organization Details LastModified Time Mother Hypertensive disorder [id number] [id number] Not available 08/25/2022 02:44:57 Mother Hypercholest erolemia MIGRATION.708 [id number] Not available 08/25/2022 02:44:57 Mother Prediabetes [id number].03 0 [id number] Not available 08/25/2022 02:44:57 Maternal Grandfather Diabetes mellitus MIGRATION.714 [id number] Not available 08/25/2022 02:44:57 Paternal Grandmother Diabetes mellitus [id number].079 [id number] Not available 08/25/2022 02:44:57 Maternal Grandmother Low blood pressure MIGRATION.154 [id number] Not available 08/25/2022 02:44:57 Mother Diabetes mellitus Not available 2022 14:13:40 Medical History Condition Response THYROID DISEASE Y CARDIAC ARRHYTHMIA Y HEADACHES/MIGRAINES Y ANXIETY DISORDER Y SURGERY Y HYPOTHYROIDISM [...] Recorded Time Tdap 05/12/2017 completed Not Available [facility] 08/25/2022 02:58:45 Tdap 02/20/2021 completed Not Available [facility] 08/25/2022 02:58:45 Past Encounters Encounter ID Performer Location Encounter Start Date Encounter Closed Date Diagnosis/Indication Diagnosis SNOMED-CT Code Diagnosis ICD10 Code Diagnosis IMO Codes Diagnosis Note [id number] [facility]HENA_M IGR[facility]_ DEFAULT_1 _1 , 10/17/2020 00:00:00 10/17/2020 10:03:59 [id number] [facility] _ATHENA_M IGRATION_ DEFAULT_1 _1 , 11/18/2020 00:00:00 11/18/2020 12:27:33 [id number] ANTOINE Us [facility] [address] [address], [address] [place] [address] 11/19/2020 00:00:00 11/19/2020 23:40:29 [id number] [facility] _ATHENA_M IGRATION_ DEFAULT_1 _1 , 12/18/2020 00:00:00 12/18/2020 14:12:59 [id number] [facility] _ATHENA_M IGRATION_ DEFAULT_1 _1 , 01/23/2021 00:00:00 01/23/2021 12:36:56 [id number] [facility] _ATHENA_M IGRATION_ DEFAULT_1 _1 , 02/03/2021 00:00:00 02/03/2021 15:18:04 [id number] [facility] _ATHENA_M IGRATION_ DEFAULT_1 _1 , 02/17/2021 00:00:00 02/17/2021 16:05:09 [id number] ANTOINE Us [facility] [address] [place] [address] 02/20/2021 00:00:00 02/22/2021 11:51:12 [id number] [facility] _ATHENA_M IGRATION_ DEFAULT_1 _1 , 03/04/2021 00:00:00 03/04/2021 09:32:10 [id number] [facility] _ATHENA_M IGRATION_ DEFAULT_1 _1 , 03/10/2021 00:00:00 03/10/2021 09:58:37 [id number] [facility] _ATHENA_M IGRATION_ DEFAULT_1 _1 , 03/17/2021 00:00:00 03/17/2021 09:04:14 [id number] [facility] _ATHENA_M IGRATION_ DEFAULT_1 _1 , 03/24/2021 00:00:00 03/24/2021 09:28:12 [id number] [facility] _ATHENA_M IGRATION_ DEFAULT_1 _1 , 04/01/2021 00:00:00 04/01/2021 09:23:48 [id number] [facility] _ATHENA_M IGRATION_ DEFAULT_1 _1 , 05/06/2021 00:00:00 05/06/2021 11:46:24 [id number] ANTOINE Us [facility] [address] [place] [address] 05/28/2021 00:00:00 06/23/2021 23:13:49 [id number] ANTOINE Us [facility] [address] [place] [address] 06/11/2022 00:00:00 06/25/2022 01:25:15 [id number] Mildred Kraft MD [facility] [address] [place] [address] 10/01/2022 14:02:16 10/01/2022 14:52:46 Hypothyroidism 61496453 E03.9 patient current on [employer] thyroid and FT4 levels are markedly low [...] could titrate her to normal range on [employer] perhaps there could be some use of [...] reduce inflammati on. Impaired f asting glycemia 137665149 R73.01 Trial on metformin Er 500 mg daily with dinner. Discussed carb counting and how to read food labels. Recommende d patient to utilize the diabetesfo [employer] from the ADA website to help with food preparatio n as this presents ideal carb content per meal so this will make carb counting much easier for patient. Recommende d she incorporat e natural insulin drug and alcohol treatment specialist s such as pears, apples, cinnamon, maxiem and sweet potatoes to help mobilize her endogenous insulin. Recommende d up to 150 minutes of moderate level activity/e xercise weekly. Hirsutism 979498772 L68. 0 Send for full hormone panel- [...] in july to assess endogenous function. Goiter 6085210 E04.9 Will send for baseline thyroid ultrasound [...] she chooses to go outside of the [facility] system to obtain labwork she was [...] ing. Thank you for this consultati on. 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 Impaired f asting glycemia 668674451 R73.01 Continue on metformin Er 500 mg daily with dinner. Recommende d she incorporat e natural insulin drug and alcohol treatment specialist s such as pears, apples, cinnamon, maxime [...] Concerns Section Related Observation LastModified by Organization Detai ls LastModified Time None Recorded Concern Status LastModified by Organization Details LastModified Time None Recorded Advance Directives Directive None Recorded Payers Insurance Date Sequence Insurance Name Policy Number Policy Mccabe Covered Member ID Mccabe Member ID Guarantor Name 04/04/2023 1 [facility] [id number] Lexie Krueger [id number] Lexie Krueger Notes Date Note Type Note Provider Name and Address Organization Details Recorded Time 10/01/2022 text/html 32 yo female referred to our [...] levothyroxine and functional physician placed her on [employer]- she is currently taking an unknown dose but previously on LT4 75 mcg daily. Her B12 was 593 pg/mL from Feb labs from 08/19:FT4 of 0.59 ng/dLTSH of 1.770 uIU/mla1c 5.6%197/169/41/91gl ucose 104 mg/dLCr normalLFT normalinsulin 14.5 uU/mlFT3 of 2.8 pg/mL Mildred Kraft MD [address] [facility] [address], [place], [address], [facility] [employer] 10/01/2022 16:00:04 04/01/2023 text/html ROS as noted in the HPI 33 yo female comes in for follow [...] modify her OCP therapy further. labs from 03/07/23:testosteron e 23 ng/dLinsulin 12.2 uU/mLFT3 of 3.3 pg/mlTPO 1 IU/mLglucose 92 mg/dLLFT tdqyijE10/folate tyczjaE6W of 5.3%TSH of 0.986 uIU/ml Mildred Kraft MD [address] [facility] [address], [place], [address], [place] [facility] 04/02/2023 12:09:38 OBGyn Episode No OBEpisode recorded.
[2025-05-07 08:07] LABS: Hematocrit 42.3 % (37.0-47.0); Hemoglobin 14.0 g/dL (12.0-15.0); Immature Granulocyte Percent A 0.2 % (0-0.5); Lymphocytes Absolute Auto 2.64 K/mm3 (0.9-3.2); Mean Corpuscular HGB Conc 33.1 g/dl (32-36); Mean Corpuscular Hemoglobin 28.1 pg (26-34); Mean Corpuscular Volume 84.8 fl (80-100); Nucleated Red Blood Cells Absolute Auto 0.000 K/mm3 (0.0-0.012); Nucleated Red Blood Cells Perc 0.0 % (0.0-0.2); Platelet Count Result 330 k/mm3 (150-375); Red Blood Count 4.99 M/mm3 (4.2-5.4); White Blood Count 8.2 K/mm3 (4.5-10.0)
[2025-05-07 08:16] LABS: Hemoglobin A1C 5.3 % (<5.7)
[2025-05-07 08:19] LABS: Iron 76 ug/dL (37-170)
[2025-05-07 08:29] LABS: Percent Iron Saturation 21 % (20-50)
[2025-05-07 08:30] LABS: Alanine Aminotransferase 24 U/L (6-35); Albumin Level 4.3 g/dL (3.5-5.1); Alkaline Phosphatase 64 U/L (38-126); Anion Gap 7 mmol/L (4-12); Aspartate Amino Transferase 41 U/L (14-36); Bilirubin,Total 0.5 mg/dL (0.2-1.3); Blood Urea Nitrogen 13 mg/dL (7-17); Calcium 9.4 mg/dL (8.4-10.2); Carbon Dioxide 28 mmol/L (22-30); Chloride 103 mmol/L (98-107); Cholesterol 177 mg/dL (0-200); Estimated Glomerular Filt Rate > 60; Glucose 97 mg/dL (65-110); HDL Direct 49 mg/dL; Potassium 4.3 mmol/L (3.4-5.0); Sodium 138 mmol/L (137-145); Total Protein 7.5 g/dL (6.3-8.2); Triglycerides 104 mg/dL (<150)
[2025-05-07 08:54] LABS: Ferritin 54.20 ng/mL (6.24-137)
[2025-05-07 09:06] LABS: Thyroid Stimulating Hormone 0.887 uIU/mL (0.465-4.680)
[2025-05-07 09:11] LABS: Free T4 Free Thyroxine 1.05 ng/dL (0.78-2.19)
[2025-05-08 09:08] LABS: FSH 6.5 mIU/mL (.)
[2025-05-08 11:09] LABS: LH 7.2 mIU/mL (.)
[2025-05-12 09:08] LABS: Estradiol, Sensitive 32.2 pg/mL (.)
[2025-05-19 04:17] LABS: Testosterone, Total, LC/MS 21 ng/dL (.)
== END 2025-05-07 07:44 | disposition home or self-care (01) ==
PROVIDERS: PCP Family Medicine; Referring Provider Obstetrics & Gynecology; Visit Provider Student in an Organized Health Care Education/Training Program
DX: E88.819 Insulin resistance, unspecified (principal); E03.9 Hypothyroidism, unspecified; E28.2 Polycystic ovarian syndrome; R53.83 Other fatigue
CPT/HCPCS: 36415; 80053; 80061; 82166; 82306; 82627; 82670; 82728; 83001; 83002; 83036; 83540; 83550; 84144; 84146; 84270; 84403; 84439; 84443; 85025